=== PATIENT | male | born 1955 | race Caucasian/White ===

== ENCOUNTER 2018-01-26 16:36 | Inpatient (IN) | payer MEDICAID, OTHER ==
[~2018-01-26] VITALS: Ht 182.9 cm; Wt 78.6 kg
[~2018-01-26 16:36] MED LIST: ASPI81TA52 PO; CARV-50 PO; FURO-149 PO; LISI-604 PO; PANT-47 PO; SPIR25TA3 PO
[2018-01-26] MEDS ORDERED: normal saline 1000ML IV soln IV ONE (17:05)
[2018-01-26] MEDS ORDERED: ondansetron/PF 4mg/2ml inj IV ONE (17:05)
[2018-01-26] MEDS ORDERED: pantoprazole IV 80 MG in normal saline 100ml IV soln 100 ML IV ONE (17:05)
[2018-01-26 17:38] LABS: BASOPHILS % (AUTO) 1.3 % (0-1); EOSINOPHILS # (AUTO) 0.1 X10'3 (0-0.9); EOSINOPHILS % (AUTO) 3.7 % (0-6); HEMOGLOBIN 10.6 g/dl (14.0-17.9); LYMPHOCYTES # (AUTO) 0.8 X10'3 (1.1-4.8); LYMPHOCYTES % (AUTO) 21.4 % (21-51); MEAN CORPUSCULAR HEMOGLOBIN 37.9 PG (27.0-31.0); MEAN CORPUSCULAR VOLUME 111.4 FL (78-98); MEAN PLATELET VOLUME 9.1 FL (7.4-10.4); MONOCYTES # (AUTO) 0.3 X10'3 (0-0.9); MONOCYTES % (AUTO) 7.6 % (2-12); NEUTROPHILS # (AUTO) 2.5 X10'3 (1.8-7.7); PLATELET COUNT 92 X10'3 (140-440); RED BLOOD COUNT 2.79 X10'6 (4.70-6.10); RED CELL DISTRIBUTION WIDTH 21.6 % (11.5-14.5); WHITE BLOOD COUNT 3.7 X10'3 (4.5-11.0)
[2018-01-26 17:45] LABS: INR 1.1 INR; PARTIAL THROMBOPLASTIN TIME 25 SECONDS (22-32); PROTHROMBIN TIME 11.5 SECONDS (9.0-12.0)
[2018-01-26 17:54] LABS: ANISOCYTOSIS 3+; LARGE PLATELETS FEW; PLATELET ESTIMATE DECREASED; POLYCHROMASIA 2+
[2018-01-26 17:59] LABS: ALANINE AMINOTRANSFERASE 58 U/L (12-78); ALBUMIN 3.9 G/DL (3.4-5.0); ALBUMIN/GLOBULIN RATIO 1.2 (1.1-1.5); ALKALINE PHOSPHATASE 179 IU/L (46-116); ANION GAP 9 (8-16); ASPARTATE AMINO TRANSFERASE 80 U/L (10-37); BILIRUBIN,TOTAL 1.6 MG/DL (0.1-1.0); BLOOD UREA NITROGEN 8 MG/DL (7-18); BUN/CREATININE RATIO 5.8 (5.4-32.0); CALCIUM 8.4 MG/DL (8.5-10.1); CHLORIDE 98 MMOL/L (99-107); CREATININE 1.38 MG/DL (0.60-1.10); GLUCOSE 92 MG/DL (70-104); POTASSIUM 4.5 MMOL/L (3.5-5.1); SODIUM 133 MMOL/L (135-145); TOTAL CARBON DIOXIDE 26.2 MMOL/L (24-32); TOTAL PROTEIN 7.2 G/DL (6.4-8.2); eGFR 52 ML/MIN
[2018-01-26] MEDS: octreotide inj. 1,250 MCG in normal saline 250ml IV soln 250 ML IV SCH (18:21)
[2018-01-26 18:59] LABS: CLARITY,URINE CLEAR (Clear); COLOR,URINE AMBER (Yellow); GLUCOSE, URINE NEGATIVE (Neg); KETONES,URINE NEGATIVE (Neg); LEUKOCYTE ESTERASE ,URINE NEGATIVE (Neg); NITRITES, URINE NEGATIVE (Neg); OCCULT BLOOD,URINE NEGATIVE (Neg); PROTEIN,URINE NEGATIVE (Neg); UROBILINOGEN,URINE 0.2 E.U/dL (0.2-1.0)
[2018-01-26 19:00] LABS: UA COLLECTION TYPE CLN CATCH MIDSTREAM
[2018-01-26] MEDS ORDERED: morphine 4 MG/ML inj SYRINge IV ONE (19:45)
[2018-01-26] MEDS: pantoprazole IV 80 MG in dextrose 5%-water 100 ML IV SCH (20:27)
[2018-01-26] MEDS ORDERED: thiamine 100mg/ml 2ml inj. IV ONE (20:40)
[2018-01-26] MEDS ORDERED: potassium Cl 40MEQ/NS 500ml 500 ML IV PRN ×2 (20:40)
[2018-01-26] MEDS ORDERED: acetaminophen 325mg tablet PO PRN (20:40)
[2018-01-26] MEDS ORDERED: potassium Cl 20 mEq SR tablet PO PRN ×2 (20:40)
[2018-01-26] MEDS ORDERED: ipratropium/albuterol 3ml nebule NEB PRN (20:40)
[2018-01-26] MEDS ORDERED: magnesium 4gm in 100ml NS 100 ML IV PRN (20:40)
[2018-01-26] MEDS ORDERED: magnesium Cl slow-release 64mg tablet PO PRN (20:40)
[2018-01-26] MEDS ORDERED: magnesium hydroxide 30ml (MOM) UD suspension PO PRN (20:40)
[2018-01-26] MEDS ORDERED: mag hydrox/Alum hydrox/simeth 30ml oral suspension PO PRN (20:40)
[2018-01-26] MEDS ORDERED: magnesium 2GM in 50ml NS 50 ML IV PRN (20:40)
[2018-01-26] MEDS ORDERED: haloperidol 5mg tablet PO PRN (20:40)
[2018-01-26] MEDS ORDERED: albuterol 2.5 MG/3 ML nebule NEB PRN (20:40)
[2018-01-26] MEDS ORDERED: dextrose 50%-water 50ml dispensing syringe IV PRN (20:40)
[2018-01-26] MEDS ORDERED: haloperidol lactate 5mg/ml inj IM PRN (20:40)
[2018-01-26 22:00] VITALS: BP 127/78
[2018-01-26] MEDS: normal saline 1000ml 1,000 ML IV SCH (22:49)
[2018-01-27] VITALS (11 sets, daily range): BP systolic 101–144; BP diastolic 53–100
[2018-01-27] MEDS ORDERED: MORPHINE 2MG in 2ml NS syringe IV PRN (00:35)
[2018-01-27] MEDS: morphine 4 MG/ML inj SYRINge IV PRN ×5 (00:57→22:38)
[2018-01-27] MEDS: ondansetron/PF 4mg/2ml inj IV PRN ×2 (04:40→22:37)
[2018-01-27] MEDS: pantoprazole IV 80 MG in dextrose 5%-water 100 ML IV SCH (04:57)
[2018-01-27 06:14] LABS: ALANINE AMINOTRANSFERASE 44 U/L (12-78); ALBUMIN 3.1 G/DL (3.4-5.0); ALBUMIN/GLOBULIN RATIO 1.1 (1.1-1.5); ALKALINE PHOSPHATASE 148 IU/L (46-116); ANION GAP 14 (8-16); ASPARTATE AMINO TRANSFERASE 57 U/L (10-37); BILIRUBIN,TOTAL 1.7 MG/DL (0.1-1.0); BLOOD UREA NITROGEN 8 MG/DL (7-18); BUN/CREATININE RATIO 5.4 (5.4-32.0); CALCIUM 7.6 MG/DL (8.5-10.1); CHLORIDE 104 MMOL/L (99-107); CREATININE 1.47 MG/DL (0.60-1.10); GLUCOSE 94 MG/DL (70-104); MAGNESIUM 1.7 MG/DL (1.5-2.4); POTASSIUM 4.6 MMOL/L (3.5-5.1); SODIUM 136 MMOL/L (135-145); TOTAL CARBON DIOXIDE 18.4 MMOL/L (24-32); eGFR 49 ML/MIN
[2018-01-27 06:19] LABS: BASOPHILS % (AUTO) 0.8 % (0-1); EOSINOPHILS # (AUTO) 0.1 X10'3 (0-0.9); EOSINOPHILS % (AUTO) 3.6 % (0-6); HEMATOCRIT 26.8 % (42.0-52.0); HEMOGLOBIN 9.2 g/dl (14.0-17.9); LYMPHOCYTES # (AUTO) 1.1 X10'3 (1.1-4.8); MEAN CORPUSCULAR HEMOGLOBIN 38.2 PG (27.0-31.0); MEAN CORPUSCULAR HGB CONC 34.3 % (33.0-36.5); MEAN CORPUSCULAR VOLUME 111.4 FL (78-98); MEAN PLATELET VOLUME 9.6 FL (7.4-10.4); MONOCYTES # (AUTO) 0.3 X10'3 (0-0.9); MONOCYTES % (AUTO) 9.7 % (2-12); NEUTROPHILS # (AUTO) 1.4 X10'3 (1.8-7.7); NEUTROPHILS % (AUTO) 47.9 % (42-75); PLATELET COUNT 72 X10'3 (140-440); RED CELL DISTRIBUTION WIDTH 21.8 % (11.5-14.5); WHITE BLOOD COUNT 2.9 X10'3 (4.5-11.0)
[2018-01-27 07:00] LABS: OCCULT BLOOD STOOL POSITIVE (Neg)
[2018-01-27 07:47] LABS: ANISOCYTOSIS 3+; LARGE PLATELETS FEW; PLATELET ESTIMATE DECREASED; TOTAL CELLS COUNTED 100
[2018-01-27 07:48] LABS: POIKILOCYTOSIS FEW; POLYCHROMASIA 1+
[2018-01-27] MEDS: carVEDilol 12.5mg tablet PO SCH ×2 (08:00→20:00)
[2018-01-27] MEDS: furosemide 40mg tablet PO SCH (08:00)
[2018-01-27] MEDS: lisinopril 5mg tablet PO SCH (08:00)
[2018-01-27] MEDS: K and/or MAG REPLACEMENT MC SCH (08:00)
[2018-01-27] MEDS: normal saline 1000ml 1,000 ML IV SCH ×2 (08:37→16:39)
[2018-01-27] MEDS ORDERED: fentaNYL/PF 50MCG/1 ML 2ML syringe ONE (08:41)
[2018-01-27] MEDS ORDERED: LIDOcaine Viscous 15ml cup ONE (08:42)
[2018-01-27] MEDS ORDERED: MIDAZolam 5mg/5ml vial ONE (08:42)
[2018-01-27] MEDS: pantoprazole IV 80 MG in normal saline 100ml IV soln 100 ML IV SCH ×2 (14:00→21:10)
[2018-01-27] MEDS: octreotide inj. 1,250 MCG in normal saline 250ml IV soln 250 ML IV SCH (18:03)
[2018-01-28] MEDS: normal saline 1000ml 1,000 ML IV SCH (01:19)
[2018-01-28 03:00] VITALS: BP 136/100
[2018-01-28] MEDS: ondansetron/PF 4mg/2ml inj IV PRN (04:05)
[2018-01-28] MEDS: morphine 4 MG/ML inj SYRINge IV PRN ×2 (04:05→14:22)
[2018-01-28] MEDS: pantoprazole IV 80 MG in normal saline 100ml IV soln 100 ML IV SCH ×2 (04:42→21:53)
[2018-01-28 05:44] LABS: BASOPHILS # (AUTO) 0.1 X10'3 (0-0.2); BASOPHILS % (AUTO) 1.5 % (0-1); EOSINOPHILS # (AUTO) 0.1 X10'3 (0-0.9); HEMATOCRIT 28.3 % (42.0-52.0); HEMOGLOBIN 9.6 g/dl (14.0-17.9); LYMPHOCYTES # (AUTO) 0.9 X10'3 (1.1-4.8); LYMPHOCYTES % (AUTO) 22.4 % (21-51); MEAN CORPUSCULAR HEMOGLOBIN 38.6 PG (27.0-31.0); MEAN CORPUSCULAR VOLUME 113.6 FL (78-98); MEAN PLATELET VOLUME 9.9 FL (7.4-10.4); MONOCYTES # (AUTO) 0.5 X10'3 (0-0.9); MONOCYTES % (AUTO) 14.1 % (2-12); NEUTROPHILS # (AUTO) 2.3 X10'3 (1.8-7.7); PLATELET COUNT 82 X10'3 (140-440); RED BLOOD COUNT 2.49 X10'6 (4.70-6.10); RED CELL DISTRIBUTION WIDTH 21.6 % (11.5-14.5); WHITE BLOOD COUNT 3.9 X10'3 (4.5-11.0)
[2018-01-28 06:06] LABS: ALANINE AMINOTRANSFERASE 41 U/L (12-78); ALBUMIN 3.4 G/DL (3.4-5.0); ALBUMIN/GLOBULIN RATIO 1.2 (1.1-1.5); ALKALINE PHOSPHATASE 142 IU/L (46-116); ANION GAP 14 (8-16); ASPARTATE AMINO TRANSFERASE 44 U/L (10-37); BILIRUBIN,TOTAL 1.9 MG/DL (0.1-1.0); BLOOD UREA NITROGEN 14 MG/DL (7-18); BUN/CREATININE RATIO 8.6 (5.4-32.0); CALCIUM 7.8 MG/DL (8.5-10.1); CHLORIDE 104 MMOL/L (99-107); CREATININE 1.63 MG/DL (0.60-1.10); GLUCOSE 90 MG/DL (70-104); MAGNESIUM 1.7 MG/DL (1.5-2.4); POTASSIUM 5.1 MMOL/L (3.5-5.1); SODIUM 136 MMOL/L (135-145); TOTAL PROTEIN 6.2 G/DL (6.4-8.2); eGFR 43 ML/MIN
[2018-01-28 06:35] VITALS: BP 129/98
[2018-01-28] MEDS: LORazepam 2 mg/ml vial IV PRN ×5 (08:00→22:32)
[2018-01-28] MEDS: K and/or MAG REPLACEMENT MC SCH (08:00)
[2018-01-28] MEDS: furosemide 40mg tablet PO SCH (08:04)
[2018-01-28] MEDS: lisinopril 5mg tablet PO SCH (08:04)
[2018-01-28] MEDS: carVEDilol 12.5mg tablet PO SCH ×2 (08:04→20:00)
[2018-01-28] MEDS: sodium chloride 0.45% 1,000 ML IV SCH ×2 (10:00→23:36)
[2018-01-28] MEDS: thiamine inj. 100 MG, MVI, adult No.4 with vit. K 10 ML in dextrose 5% water 500ml 489 ML IV SCH ×3 (10:18)
[2018-01-28 11:00] VITALS: BP 147/95
[2018-01-28 15:00] VITALS: BP 191/147
[2018-01-28] MEDS ORDERED: atenolol 50mg tablet PO SCH (15:30)
[2018-01-28] MEDS ORDERED: haloperidol 5mg tablet PO PRN ×2 (15:30)
[2018-01-28] MEDS ORDERED: haloperidol lactate 5mg/ml inj IM PRN ×2 (15:30)
[2018-01-28] MEDS ORDERED: thiamine 100mg/ml 2ml inj. IV ONE ×2 (15:30)
[2018-01-28] MEDS ORDERED: LORazepam 1 MG tablet PO PRN ×2 (15:30→20:40)
[2018-01-28] MEDS ORDERED: LORazepam 2 mg/ml vial IV PRN ×2 (15:30→20:40)
[2018-01-28] MEDS ORDERED: cloNIDine 0.1 mg tablet PO PRN (15:30)
[2018-01-28] MEDS ORDERED: dextrose 50%-water 50ml dispensing syringe IV PRN ×2 (15:30)
[2018-01-28] MEDS ORDERED: thiamine inj. 100 MG in normal saline 100ml IV soln 99 ML IV ONE (16:35)
[2018-01-28 17:53] VITALS: BP 126/76
[2018-01-28] MEDS: octreotide inj. 1,250 MCG in normal saline 250ml IV soln 250 ML IV SCH (19:14)
[2018-01-28] MEDS ORDERED: haloperidol lactate 5mg/ml inj IM ONE (19:40)
[2018-01-29] MEDS: sodium chloride 0.45% 1,000 ML IV SCH ×3 (02:00→19:14)
[2018-01-29] MEDS: LORazepam 2 mg/ml vial IV PRN ×3 (03:33→07:57)
[2018-01-29 06:06] LABS: ALANINE AMINOTRANSFERASE 39 U/L (12-78); ALBUMIN 3.5 G/DL (3.4-5.0); ALBUMIN/GLOBULIN RATIO 1.1 (1.1-1.5); ALKALINE PHOSPHATASE 146 IU/L (46-116); ANION GAP 13 (8-16); ASPARTATE AMINO TRANSFERASE 53 U/L (10-37); BILIRUBIN,TOTAL 1.8 MG/DL (0.1-1.0); BLOOD UREA NITROGEN 15 MG/DL (7-18); BUN/CREATININE RATIO 8.7 (5.4-32.0); CALCIUM 8.2 MG/DL (8.5-10.1); CHLORIDE 103 MMOL/L (99-107); CREATININE 1.73 MG/DL (0.60-1.10); GLUCOSE 98 MG/DL (70-104); MAGNESIUM 1.7 MG/DL (1.5-2.4); POTASSIUM 4.4 MMOL/L (3.5-5.1); SODIUM 137 MMOL/L (135-145); TOTAL CARBON DIOXIDE 21.2 MMOL/L (24-32); TOTAL PROTEIN 6.6 G/DL (6.4-8.2); eGFR 40 ML/MIN
[2018-01-29 06:35] VITALS: BP 113/93
[2018-01-29] MEDS: pantoprazole IV 80 MG in normal saline 100ml IV soln 100 ML IV SCH (06:43)
[2018-01-29] MEDS: carVEDilol 12.5mg tablet PO SCH ×2 (07:46→19:22)
[2018-01-29] MEDS: lisinopril 5mg tablet PO SCH (07:46)
[2018-01-29] MEDS: furosemide 40mg tablet PO SCH (07:47)
[2018-01-29] MEDS: K and/or MAG REPLACEMENT MC SCH (08:00)
[2018-01-29] MEDS: thiamine inj. 100 MG, MVI, adult No.4 with vit. K 10 ML in dextrose 5% water 500ml 489 ML IV SCH ×3 (08:00)
[2018-01-29 08:50] LABS: BASOPHILS % (AUTO) 1.3 % (0-1); EOSINOPHILS # (AUTO) 0.1 X10'3 (0-0.9); EOSINOPHILS % (AUTO) 3.6 % (0-6); HEMOGLOBIN 9.8 g/dl (14.0-17.9); MEAN CORPUSCULAR HEMOGLOBIN 38.4 PG (27.0-31.0); MEAN CORPUSCULAR HGB CONC 33.8 % (33.0-36.5); MEAN CORPUSCULAR VOLUME 113.5 FL (78-98); MEAN PLATELET VOLUME 10.4 FL (7.4-10.4); MONOCYTES # (AUTO) 0.5 X10'3 (0-0.9); MONOCYTES % (AUTO) 14.5 % (2-12); NEUTROPHILS % (AUTO) 52.6 % (42-75); PLATELET COUNT 88 X10'3 (140-440); RED BLOOD COUNT 2.56 X10'6 (4.70-6.10); RED CELL DISTRIBUTION WIDTH 19.9 % (11.5-14.5); WHITE BLOOD COUNT 3.6 X10'3 (4.5-11.0)
[2018-01-29 11:00] VITALS: BP 133/91
[2018-01-29] MEDS: CefTRIAXone/D5W-Rocephin 1gm 50 ML IV SCH (12:52)
[2018-01-29] MEDS: multivitamins, therapeutics tablet PO SCH (14:02)
[2018-01-29] MEDS: thiamine 100mg tablet PO SCH (14:02)
[2018-01-29] MEDS ORDERED: LORazepam 2 mg/ml vial IV PRN (14:40)
[2018-01-29 15:00] VITALS: BP 131/87
[2018-01-29 19:00] VITALS: BP 139/85
[2018-01-29] MEDS: morphine 4 MG/ML inj SYRINge IV PRN ×2 (19:06→23:00)
[2018-01-29 23:00] VITALS: BP 157/97
[2018-01-30] MEDS: sodium chloride 0.45% 1,000 ML IV SCH ×3 (02:00→18:00)
[2018-01-30 03:00] VITALS: BP 157/97
[2018-01-30 06:00] VITALS: BP 129/78
[2018-01-30 06:10] LABS: BASOPHILS % (AUTO) 0.7 % (0-1); EOSINOPHILS # (AUTO) 0.1 X10'3 (0-0.9); EOSINOPHILS % (AUTO) 3.8 % (0-6); HEMATOCRIT 25.7 % (42.0-52.0); HEMOGLOBIN 8.9 g/dl (14.0-17.9); LYMPHOCYTES # (AUTO) 0.8 X10'3 (1.1-4.8); LYMPHOCYTES % (AUTO) 34.5 % (21-51); MEAN CORPUSCULAR HEMOGLOBIN 38.8 PG (27.0-31.0); MEAN CORPUSCULAR HGB CONC 34.6 % (33.0-36.5); MEAN CORPUSCULAR VOLUME 112.3 FL (78-98); MEAN PLATELET VOLUME 8.8 FL (7.4-10.4); MONOCYTES # (AUTO) 0.3 X10'3 (0-0.9); MONOCYTES % (AUTO) 12.4 % (2-12); NEUTROPHILS # (AUTO) 1.2 X10'3 (1.8-7.7); NEUTROPHILS % (AUTO) 48.6 % (42-75); PLATELET COUNT 81 X10'3 (140-440); RED BLOOD COUNT 2.29 X10'6 (4.70-6.10); WHITE BLOOD COUNT 2.4 X10'3 (4.5-11.0)
[2018-01-30 06:34] LABS: ALANINE AMINOTRANSFERASE 34 U/L (12-78); ALKALINE PHOSPHATASE 131 IU/L (46-116); ANION GAP 12 (8-16); ASPARTATE AMINO TRANSFERASE 52 U/L (10-37); BILIRUBIN,TOTAL 1.5 MG/DL (0.1-1.0); BLOOD UREA NITROGEN 11 MG/DL (7-18); BUN/CREATININE RATIO 7.2 (5.4-32.0); CALCIUM 7.7 MG/DL (8.5-10.1); CHLORIDE 102 MMOL/L (99-107); CREATININE 1.52 MG/DL (0.60-1.10); GLUCOSE 86 MG/DL (70-104); MAGNESIUM 1.4 MG/DL (1.5-2.4); POTASSIUM 3.8 MMOL/L (3.5-5.1); SODIUM 137 MMOL/L (135-145); TOTAL CARBON DIOXIDE 22.7 MMOL/L (24-32); TOTAL PROTEIN 5.9 G/DL (6.4-8.2); eGFR 47 ML/MIN
[2018-01-30] MEDS: lisinopril 5mg tablet PO SCH (07:58)
[2018-01-30] MEDS: thiamine 100mg tablet PO SCH (07:58)
[2018-01-30] MEDS: furosemide 40mg tablet PO SCH (07:58)
[2018-01-30] MEDS: multivitamins, therapeutics tablet PO SCH (07:58)
[2018-01-30] MEDS: carVEDilol 12.5mg tablet PO SCH ×2 (07:58→20:17)
[2018-01-30] MEDS: CefTRIAXone/D5W-Rocephin 1gm 50 ML IV SCH (07:59)
[2018-01-30] MEDS: pantoprazole 40mg Tablet.DR PO SCH (07:59)
[2018-01-30] MEDS: K and/or MAG REPLACEMENT MC SCH (08:00)
[2018-01-30] MEDS ORDERED: potassium Cl 20 mEq SR tablet PO PRN (09:25)
[2018-01-30 09:46] LABS: ANISOCYTOSIS 3+; PLATELET ESTIMATE DECREASED
[2018-01-30 09:47] LABS: POLYCHROMASIA FEW
[2018-01-30 11:00] VITALS: BP 146/88
[2018-01-30] MEDS: lactulose 20gm/30ml cup PO SCH ×2 (13:37→20:17)
[2018-01-30] MEDS: magnesium Cl slow-release 64mg tablet PO PRN ×2 (13:37→20:17)
[2018-01-30 15:00] VITALS: BP 169/97
[2018-01-30] MEDS ORDERED: LORazepam 1 MG tablet PO PRN ×2 (15:30→20:40)
[2018-01-30] MEDS ORDERED: LORazepam 2 mg/ml vial IV PRN ×2 (15:30→20:40)
[2018-01-30 19:00] VITALS: BP 143/85
[2018-01-30] MEDS: morphine 4 MG/ML inj SYRINge IV PRN ×2 (20:16→23:58)
[2018-01-30 23:00] VITALS: BP 143/90
[2018-01-31 03:00] VITALS: BP 136/85
[2018-01-31] MEDS: sodium chloride 0.45% 1,000 ML IV SCH (03:08)
[2018-01-31] MEDS: lactulose 20gm/30ml cup PO SCH ×5 (03:08→20:04)
[2018-01-31 05:50] LABS: BASOPHILS # (AUTO) 0.1 X10'3 (0-0.2); BASOPHILS % (AUTO) 1.8 % (0-1); EOSINOPHILS # (AUTO) 0.1 X10'3 (0-0.9); EOSINOPHILS % (AUTO) 3.3 % (0-6); HEMATOCRIT 27.3 % (42.0-52.0); HEMOGLOBIN 9.3 g/dl (14.0-17.9); LYMPHOCYTES % (AUTO) 30.9 % (21-51); MEAN CORPUSCULAR HEMOGLOBIN 38.2 PG (27.0-31.0); MEAN CORPUSCULAR HGB CONC 34.2 % (33.0-36.5); MEAN CORPUSCULAR VOLUME 111.9 FL (78-98); MEAN PLATELET VOLUME 8.8 FL (7.4-10.4); MONOCYTES # (AUTO) 0.4 X10'3 (0-0.9); MONOCYTES % (AUTO) 13.5 % (2-12); NEUTROPHILS # (AUTO) 1.6 X10'3 (1.8-7.7); NEUTROPHILS % (AUTO) 50.5 % (42-75); PLATELET COUNT 93 X10'3 (140-440); RED BLOOD COUNT 2.44 X10'6 (4.70-6.10); RED CELL DISTRIBUTION WIDTH 19.4 % (11.5-14.5); WHITE BLOOD COUNT 3.2 X10'3 (4.5-11.0)
[2018-01-31 06:00] VITALS: BP 136/81
[2018-01-31 06:04] LABS: ALANINE AMINOTRANSFERASE 33 U/L (12-78); ALBUMIN 3.1 G/DL (3.4-5.0); ALBUMIN/GLOBULIN RATIO 1.1 (1.1-1.5); ALKALINE PHOSPHATASE 127 IU/L (46-116); ANION GAP 10 (8-16); ASPARTATE AMINO TRANSFERASE 48 U/L (10-37); BILIRUBIN,TOTAL 1.2 MG/DL (0.1-1.0); BLOOD UREA NITROGEN 9 MG/DL (7-18); CALCIUM 7.9 MG/DL (8.5-10.1); CHLORIDE 104 MMOL/L (99-107); CREATININE 1.49 MG/DL (0.60-1.10); GLUCOSE 102 MG/DL (70-104); MAGNESIUM 1.4 MG/DL (1.5-2.4); POTASSIUM 3.7 MMOL/L (3.5-5.1); SODIUM 139 MMOL/L (135-145); TOTAL CARBON DIOXIDE 24.7 MMOL/L (24-32); eGFR 48 ML/MIN
[2018-01-31 06:22] LABS: ANISOCYTOSIS 2+; PLATELET ESTIMATE DECREASED; POLYCHROMASIA FEW
[2018-01-31] MEDS: lisinopril 5mg tablet PO SCH ×3 (07:24→08:00)
[2018-01-31] MEDS: magnesium Cl slow-release 64mg tablet PO PRN ×3 (07:24→20:05)
[2018-01-31] MEDS: thiamine 100mg tablet PO SCH ×3 (07:24→08:00)
[2018-01-31] MEDS: CefTRIAXone/D5W-Rocephin 1gm 50 ML IV SCH (07:25)
[2018-01-31] MEDS: multivitamins, therapeutics tablet PO SCH ×3 (07:25→08:00)
[2018-01-31] MEDS: carVEDilol 12.5mg tablet PO SCH ×3 (07:25→20:04)
[2018-01-31] MEDS: furosemide 40mg tablet PO SCH ×3 (07:25→08:00)
[2018-01-31] MEDS: pantoprazole 40mg Tablet.DR PO SCH ×3 (07:25→20:05)
[2018-01-31] MEDS: K and/or MAG REPLACEMENT MC SCH (08:00)
[2018-01-31] MEDS: folic acid 1mg tablet PO SCH (11:38)
[2018-01-31] MEDS: SODIUM CHLORIDE 0.45% IV SCH (11:38)
[2018-01-31] MEDS: POTASSIUM CL IV SCH (11:38)
[2018-01-31 15:00] VITALS: BP 164/102
[2018-01-31] MEDS ORDERED: multivitamins, therapeutics tablet PO ONE (15:35)
[2018-01-31] MEDS ORDERED: furosemide 40mg tablet PO ONE (15:35)
[2018-01-31] MEDS ORDERED: lisinopril 5mg tablet PO ONE (15:40)
[2018-01-31] MEDS ORDERED: thiamine 100mg tablet PO ONE (15:40)
[2018-01-31] MEDS: LORazepam 2 mg/ml vial IV PRN ×2 (15:41→21:41)
[2018-01-31] MEDS: nicotine 21mg patch - 24 hr TD SCH (15:41)
[2018-01-31] MEDS: LACTOSE-FREE FOOD 237ML (BOOST) PO SCH (18:00)
[2018-01-31 18:30] VITALS: BP 137/81
[2018-01-31 22:00] VITALS: BP 145/91
[2018-02-01] MEDS: POTASSIUM CL IV SCH ×2 (00:29→13:13)
[2018-02-01] MEDS: SODIUM CHLORIDE 0.45% IV SCH ×2 (00:29→13:13)
[2018-02-01 02:00] VITALS: BP 132/105
[2018-02-01] MEDS: lactulose 20gm/30ml cup PO SCH ×4 (02:00→19:48)
[2018-02-01 05:30] VITALS: BP 145/73
[2018-02-01 05:36] LABS: BASOPHILS % (AUTO) 1.6 % (0-1); EOSINOPHILS # (AUTO) 0.1 X10'3 (0-0.9); EOSINOPHILS % (AUTO) 3.3 % (0-6); HEMATOCRIT 24.6 % (42.0-52.0); HEMOGLOBIN 8.5 g/dl (14.0-17.9); LYMPHOCYTES # (AUTO) 0.9 X10'3 (1.1-4.8); MEAN CORPUSCULAR HEMOGLOBIN 38.5 PG (27.0-31.0); MEAN CORPUSCULAR HGB CONC 34.6 % (33.0-36.5); MEAN CORPUSCULAR VOLUME 111.2 FL (78-98); MEAN PLATELET VOLUME 8.4 FL (7.4-10.4); MONOCYTES # (AUTO) 0.4 X10'3 (0-0.9); NEUTROPHILS # (AUTO) 1.3 X10'3 (1.8-7.7); NEUTROPHILS % (AUTO) 47.1 % (42-75); PLATELET COUNT 90 X10'3 (140-440); RED BLOOD COUNT 2.22 X10'6 (4.70-6.10); RED CELL DISTRIBUTION WIDTH 20.8 % (11.5-14.5); WHITE BLOOD COUNT 2.7 X10'3 (4.5-11.0)
[2018-02-01 06:00] LABS: ANION GAP 12 (8-16); BLOOD UREA NITROGEN 6 MG/DL (7-18); CALCIUM 7.9 MG/DL (8.5-10.1); CHLORIDE 106 MMOL/L (99-107); CREATININE 1.21 MG/DL (0.60-1.10); GLUCOSE 87 MG/DL (70-104); MAGNESIUM 1.6 MG/DL (1.5-2.4); POTASSIUM 3.4 MMOL/L (3.5-5.1); SODIUM 141 MMOL/L (135-145); TOTAL CARBON DIOXIDE 22.7 MMOL/L (24-32); eGFR 61 ML/MIN
[2018-02-01] MEDS: LACTOSE-FREE FOOD 237ML (BOOST) PO SCH ×3 (08:00→18:00)
[2018-02-01] MEDS: K and/or MAG REPLACEMENT MC SCH (08:00)
[2018-02-01] MEDS: nicotine 21mg patch - 24 hr TD SCH ×2 (08:00→15:18)
[2018-02-01] MEDS: potassium Cl 20 mEq SR tablet PO PRN ×3 (09:06→19:48)
[2018-02-01] MEDS: furosemide 40mg tablet PO SCH (09:07)
[2018-02-01] MEDS: thiamine 100mg tablet PO SCH (09:07)
[2018-02-01] MEDS: lisinopril 5mg tablet PO SCH (09:07)
[2018-02-01] MEDS: folic acid 1mg tablet PO SCH (09:07)
[2018-02-01] MEDS: carVEDilol 12.5mg tablet PO SCH ×2 (09:07→19:48)
[2018-02-01] MEDS: multivitamins, therapeutics tablet PO SCH (09:07)
[2018-02-01] MEDS: pantoprazole 40mg Tablet.DR PO SCH ×2 (09:08→19:48)
[2018-02-01] MEDS: CefTRIAXone/D5W-Rocephin 1gm 50 ML IV SCH (09:08)
[2018-02-01] MEDS: LORazepam 1 MG tablet PO PRN ×2 (09:34→19:47)
[2018-02-01 11:00] VITALS: BP 150/96
[2018-02-01 12:22] LABS: PLATELET ESTIMATE DECREASED; TOTAL CELLS COUNTED 100
[2018-02-01 12:23] LABS: ANISOCYTOSIS 3+; HYPOCHROMASIA 1+; POLYCHROMASIA FEW; SCHISTOCYTES FEW
[2018-02-01 12:24] LABS: STOMATOCYTES 1+
[2018-02-01 15:00] VITALS: BP 151/100
[2018-02-01] MEDS: clindamycin 600mg/D5W 50ml 50 ML IV SCH ×2 (15:25→19:48)
[2018-02-01] MEDS: levoFLOXACIN-Levaquin 500mg/D5 100 ML IV SCH (15:25)
[2018-02-01] MEDS ORDERED: LORazepam 1 MG tablet PO PRN (15:30)
[2018-02-01] MEDS ORDERED: LORazepam 2 mg/ml vial IV PRN (15:30)
[2018-02-01 18:00] VITALS: BP 146/101
[2018-02-01 22:00] VITALS: BP 143/100
[2018-02-02 02:00] VITALS: BP_SYST 134; BP_SYST 181; BP_DIAS 55; BP_DIAS 86
[2018-02-02] MEDS: POTASSIUM CL IV SCH ×2 (02:15→15:41)
[2018-02-02] MEDS: clindamycin 600mg/D5W 50ml 50 ML IV SCH ×4 (02:15→20:03)
[2018-02-02] MEDS: lactulose 20gm/30ml cup PO SCH ×4 (02:15→20:03)
[2018-02-02] MEDS: SODIUM CHLORIDE 0.45% IV SCH ×2 (02:15→15:41)
[2018-02-02 06:00] VITALS: BP 128/104
[2018-02-02 06:42] LABS: BASOPHILS % (AUTO) 1.3 % (0-1); EOSINOPHILS # (AUTO) 0.1 X10'3 (0-0.9); EOSINOPHILS % (AUTO) 2.9 % (0-6); HEMATOCRIT 27.4 % (42.0-52.0); HEMOGLOBIN 9.5 g/dl (14.0-17.9); LYMPHOCYTES # (AUTO) 0.9 X10'3 (1.1-4.8); LYMPHOCYTES % (AUTO) 29.6 % (21-51); MEAN CORPUSCULAR HEMOGLOBIN 38.1 PG (27.0-31.0); MEAN CORPUSCULAR HGB CONC 34.5 % (33.0-36.5); MEAN CORPUSCULAR VOLUME 110.4 FL (78-98); MEAN PLATELET VOLUME 8.8 FL (7.4-10.4); MONOCYTES # (AUTO) 0.4 X10'3 (0-0.9); MONOCYTES % (AUTO) 14.5 % (2-12); NEUTROPHILS # (AUTO) 1.6 X10'3 (1.8-7.7); NEUTROPHILS % (AUTO) 51.7 % (42-75); PLATELET COUNT 89 X10'3 (140-440); RED BLOOD COUNT 2.48 X10'6 (4.70-6.10); RED CELL DISTRIBUTION WIDTH 20.9 % (11.5-14.5); WHITE BLOOD COUNT 3.1 X10'3 (4.5-11.0)
[2018-02-02 06:56] LABS: ALBUMIN 3.1 G/DL (3.4-5.0); ANION GAP 13 (8-16); BLOOD UREA NITROGEN 6 MG/DL (7-18); BUN/CREATININE RATIO 4.4 (5.4-32.0); CALCIUM 8.5 MG/DL (8.5-10.1); CHLORIDE 107 MMOL/L (99-107); CREATININE 1.36 MG/DL (0.60-1.10); GLUCOSE 90 MG/DL (70-104); MAGNESIUM 1.6 MG/DL (1.5-2.4); POTASSIUM 3.9 MMOL/L (3.5-5.1); SODIUM 142 MMOL/L (135-145); TOTAL CARBON DIOXIDE 22.2 MMOL/L (24-32); eGFR 53 ML/MIN
[2018-02-02] MEDS: K and/or MAG REPLACEMENT MC SCH (08:00)
[2018-02-02] MEDS: LACTOSE-FREE FOOD 237ML (BOOST) PO SCH ×3 (08:00→18:00)
[2018-02-02 08:27] LABS: ANISOCYTOSIS 2+; PLATELET ESTIMATE DECREASED
[2018-02-02 08:28] LABS: TARGET CELLS FEW
[2018-02-02] MEDS: LORazepam 1 MG tablet PO PRN ×2 (08:54→15:40)
[2018-02-02] MEDS: pantoprazole 40mg Tablet.DR PO SCH ×2 (08:55→20:03)
[2018-02-02] MEDS: folic acid 1mg tablet PO SCH (08:55)
[2018-02-02] MEDS: thiamine 100mg tablet PO SCH (08:55)
[2018-02-02] MEDS: carVEDilol 12.5mg tablet PO SCH ×2 (08:55→20:03)
[2018-02-02] MEDS: lisinopril 5mg tablet PO SCH (08:55)
[2018-02-02] MEDS: multivitamins, therapeutics tablet PO SCH (08:55)
[2018-02-02] MEDS: furosemide 40mg tablet PO SCH (08:55)
[2018-02-02] MEDS: nicotine 21mg patch - 24 hr TD SCH (08:57)
[2018-02-02] MEDS: levoFLOXACIN-Levaquin 500mg/D5 100 ML IV SCH (08:57)
[2018-02-02 11:00] VITALS: BP 113/89
[2018-02-02 15:00] VITALS: BP 130/67
[2018-02-02 18:00] VITALS: BP 143/87
[2018-02-02 22:00] VITALS: BP 140/90
[2018-02-03 02:00] VITALS: BP 127/87
[2018-02-03] MEDS: lactulose 20gm/30ml cup PO SCH ×4 (02:00→20:00)
[2018-02-03] MEDS: clindamycin 600mg/D5W 50ml 50 ML IV SCH ×4 (02:29→19:47)
[2018-02-03] MEDS: SODIUM CHLORIDE 0.45% IV SCH ×2 (03:26→18:20)
[2018-02-03] MEDS: POTASSIUM CL IV SCH ×2 (03:26→18:20)
[2018-02-03 06:00] VITALS: BP 132/102
[2018-02-03] MEDS: furosemide 40mg tablet PO SCH (07:11)
[2018-02-03] MEDS: lisinopril 5mg tablet PO SCH (07:11)
[2018-02-03] MEDS: pantoprazole 40mg Tablet.DR PO SCH ×2 (07:11→19:48)
[2018-02-03] MEDS: folic acid 1mg tablet PO SCH (07:11)
[2018-02-03] MEDS: thiamine 100mg tablet PO SCH (07:11)
[2018-02-03] MEDS: LORazepam 1 MG tablet PO PRN ×3 (07:11→19:00)
[2018-02-03] MEDS: carVEDilol 12.5mg tablet PO SCH ×2 (07:11→19:48)
[2018-02-03] MEDS: multivitamins, therapeutics tablet PO SCH (07:11)
[2018-02-03] MEDS: nicotine 21mg patch - 24 hr TD SCH (07:15)
[2018-02-03] MEDS: LACTOSE-FREE FOOD 237ML (BOOST) PO SCH ×3 (08:00→18:00)
[2018-02-03 10:16] LABS: BASOPHILS % (AUTO) 1.1 % (0-1); EOSINOPHILS # (AUTO) 0.1 X10'3 (0-0.9); EOSINOPHILS % (AUTO) 2.6 % (0-6); HEMATOCRIT 29.6 % (42.0-52.0); HEMOGLOBIN 10.1 g/dl (14.0-17.9); LYMPHOCYTES # (AUTO) 1.1 X10'3 (1.1-4.8); LYMPHOCYTES % (AUTO) 28.9 % (21-51); MEAN CORPUSCULAR HEMOGLOBIN 37.6 PG (27.0-31.0); MEAN CORPUSCULAR HGB CONC 33.9 % (33.0-36.5); MEAN CORPUSCULAR VOLUME 110.8 FL (78-98); MONOCYTES # (AUTO) 0.5 X10'3 (0-0.9); MONOCYTES % (AUTO) 13.5 % (2-12); NEUTROPHILS % (AUTO) 53.9 % (42-75); PLATELET COUNT 98 X10'3 (140-440); RED BLOOD COUNT 2.67 X10'6 (4.70-6.10); RED CELL DISTRIBUTION WIDTH 20.7 % (11.5-14.5); WHITE BLOOD COUNT 3.7 X10'3 (4.5-11.0)
[2018-02-03 10:27] LABS: ALBUMIN 3.3 G/DL (3.4-5.0); ANION GAP 13 (8-16); BLOOD UREA NITROGEN 10 MG/DL (7-18); BUN/CREATININE RATIO 6.5 (5.4-32.0); CALCIUM 8.3 MG/DL (8.5-10.1); CHLORIDE 104 MMOL/L (99-107); CREATININE 1.55 MG/DL (0.60-1.10); GLUCOSE 88 MG/DL (70-104); POTASSIUM 4.2 MMOL/L (3.5-5.1); SODIUM 140 MMOL/L (135-145); TOTAL CARBON DIOXIDE 22.8 MMOL/L (24-32); eGFR 46 ML/MIN
[2018-02-03 10:48] LABS: LARGE PLATELETS FEW; PLATELET ESTIMATE DECREASED
[2018-02-03 10:49] LABS: ANISOCYTOSIS 3+; HYPOCHROMASIA 1+; POLYCHROMASIA 1+; TARGET CELLS 1+
[2018-02-03 11:00] VITALS: BP 154/90
[2018-02-03] MEDS: K and/or MAG REPLACEMENT MC SCH (11:18)
[2018-02-03] MEDS: levoFLOXACIN-Levaquin 500mg/D5 100 ML IV SCH (11:28)
[2018-02-03] MEDS: sucralfate 1 gm tablet PO SCH ×2 (16:08→21:00)
[2018-02-03 18:00] VITALS: BP 155/94
[2018-02-03] MEDS: lactobacillus rhamnosus 10,000 MMU CELLS/CAPSULE PO SCH (19:47)
[2018-02-03 22:00] VITALS: BP 141/89
[2018-02-04] VITALS (7 sets, daily range): BP systolic 117–149; BP diastolic 60–95
[2018-02-04] MEDS: LORazepam 1 MG tablet PO PRN ×3 (00:56→17:08)
[2018-02-04] MEDS: clindamycin 600mg/D5W 50ml 50 ML IV SCH ×4 (01:11→20:23)
[2018-02-04] MEDS: lactulose 20gm/30ml cup PO SCH ×5 (01:12→22:59)
[2018-02-04] MEDS: carVEDilol 12.5mg tablet PO SCH ×2 (06:58→20:23)
[2018-02-04] MEDS: sucralfate 1 gm tablet PO SCH ×4 (06:59→20:23)
[2018-02-04] MEDS: lisinopril 5mg tablet PO SCH (07:00)
[2018-02-04] MEDS: thiamine 100mg tablet PO SCH (07:00)
[2018-02-04] MEDS: multivitamins, therapeutics tablet PO SCH (07:00)
[2018-02-04] MEDS: lactobacillus rhamnosus 10,000 MMU CELLS/CAPSULE PO SCH ×2 (07:01→20:23)
[2018-02-04] MEDS: pantoprazole 40mg Tablet.DR PO SCH ×2 (07:01→20:23)
[2018-02-04] MEDS: folic acid 1mg tablet PO SCH (07:01)
[2018-02-04] MEDS: nicotine 21mg patch - 24 hr TD SCH (07:05)
[2018-02-04 07:06] LABS: BASOPHILS # (AUTO) 0.1 X10'3 (0-0.2); BASOPHILS % (AUTO) 1.8 % (0-1); EOSINOPHILS # (AUTO) 0.1 X10'3 (0-0.9); EOSINOPHILS % (AUTO) 2.7 % (0-6); HEMATOCRIT 28.1 % (42.0-52.0); HEMOGLOBIN 9.6 g/dl (14.0-17.9); LYMPHOCYTES # (AUTO) 1.2 X10'3 (1.1-4.8); MEAN CORPUSCULAR HEMOGLOBIN 37.7 PG (27.0-31.0); MEAN CORPUSCULAR HGB CONC 34.1 % (33.0-36.5); MEAN CORPUSCULAR VOLUME 110.8 FL (78-98); MEAN PLATELET VOLUME 9.7 FL (7.4-10.4); MONOCYTES # (AUTO) 0.4 X10'3 (0-0.9); MONOCYTES % (AUTO) 11.3 % (2-12); NEUTROPHILS % (AUTO) 53.2 % (42-75); PLATELET COUNT 84 X10'3 (140-440); RED BLOOD COUNT 2.53 X10'6 (4.70-6.10); RED CELL DISTRIBUTION WIDTH 20.7 % (11.5-14.5); WHITE BLOOD COUNT 3.8 X10'3 (4.5-11.0)
[2018-02-04] MEDS: SODIUM CHLORIDE 0.45% IV SCH (07:07)
[2018-02-04] MEDS: POTASSIUM CL IV SCH (07:07)
[2018-02-04 07:25] LABS: ALBUMIN 3.2 G/DL (3.4-5.0); ANION GAP 16 (8-16); BLOOD UREA NITROGEN 13 MG/DL (7-18); BUN/CREATININE RATIO 8.7 (5.4-32.0); CALCIUM 8.2 MG/DL (8.5-10.1); CHLORIDE 104 MMOL/L (99-107); GLUCOSE 87 MG/DL (70-104); SODIUM 139 MMOL/L (135-145); TOTAL CARBON DIOXIDE 19.2 MMOL/L (24-32); eGFR 47 ML/MIN
[2018-02-04 07:28] LABS: ANISOCYTOSIS 3+; PLATELET ESTIMATE DECREASED
[2018-02-04 07:29] LABS: POLYCHROMASIA 1+; TARGET CELLS FEW
[2018-02-04] MEDS ORDERED: furosemide 20MG tablet PO SCH (08:00)
[2018-02-04] MEDS: K and/or MAG REPLACEMENT MC SCH (08:00)
[2018-02-04] MEDS: LACTOSE-FREE FOOD 237ML (BOOST) PO SCH ×3 (08:40→18:00)
[2018-02-04] MEDS: levoFLOXACIN-Levaquin 500mg/D5 100 ML IV SCH (08:57)
[2018-02-04] MEDS: LORazepam 0.5 MG tablet PO PRN (21:42)
[2018-02-05] MEDS: clindamycin 600mg/D5W 50ml 50 ML IV SCH ×3 (02:05→14:00)
[2018-02-05 06:00] VITALS: BP 126/74
[2018-02-05 06:47] LABS: ALBUMIN 2.9 G/DL (3.4-5.0); ANION GAP 9 (8-16); BLOOD UREA NITROGEN 11 MG/DL (7-18); BUN/CREATININE RATIO 7.9 (5.4-32.0); CHLORIDE 106 MMOL/L (99-107); CREATININE 1.39 MG/DL (0.60-1.10); GLUCOSE 85 MG/DL (70-104); POTASSIUM 3.8 MMOL/L (3.5-5.1); SODIUM 138 MMOL/L (135-145); TOTAL CARBON DIOXIDE 22.7 MMOL/L (24-32); eGFR 52 ML/MIN
[2018-02-05 07:36] LABS: BASOPHILS % (AUTO) 1.2 % (0-1); EOSINOPHILS # (AUTO) 0.1 X10'3 (0-0.9); EOSINOPHILS % (AUTO) 3.8 % (0-6); HEMATOCRIT 26.1 % (42.0-52.0); HEMOGLOBIN 8.9 g/dl (14.0-17.9); LYMPHOCYTES # (AUTO) 0.9 X10'3 (1.1-4.8); LYMPHOCYTES % (AUTO) 30.7 % (21-51); MEAN CORPUSCULAR HEMOGLOBIN 37.5 PG (27.0-31.0); MEAN CORPUSCULAR VOLUME 110.5 FL (78-98); MEAN PLATELET VOLUME 10.3 FL (7.4-10.4); MONOCYTES # (AUTO) 0.3 X10'3 (0-0.9); MONOCYTES % (AUTO) 11.2 % (2-12); NEUTROPHILS # (AUTO) 1.6 X10'3 (1.8-7.7); NEUTROPHILS % (AUTO) 53.1 % (42-75); PLATELET COUNT 82 X10'3 (140-440); RED BLOOD COUNT 2.36 X10'6 (4.70-6.10); RED CELL DISTRIBUTION WIDTH 20.2 % (11.5-14.5); WHITE BLOOD COUNT 3.1 X10'3 (4.5-11.0)
[2018-02-05] MEDS: K and/or MAG REPLACEMENT MC SCH (08:00)
[2018-02-05] MEDS: lactulose 20gm/30ml cup PO SCH ×2 (08:00→14:00)
[2018-02-05] MEDS: nicotine 21mg patch - 24 hr TD SCH (08:12)
[2018-02-05] MEDS: lisinopril 5mg tablet PO SCH (08:14)
[2018-02-05] MEDS: folic acid 1mg tablet PO SCH (08:14)
[2018-02-05] MEDS: thiamine 100mg tablet PO SCH (08:14)
[2018-02-05] MEDS: pantoprazole 40mg Tablet.DR PO SCH (08:14)
[2018-02-05] MEDS: sucralfate 1 gm tablet PO SCH ×2 (08:14→12:02)
[2018-02-05] MEDS: multivitamins, therapeutics tablet PO SCH (08:14)
[2018-02-05] MEDS: carVEDilol 12.5mg tablet PO SCH (08:14)
[2018-02-05] MEDS: lactobacillus rhamnosus 10,000 MMU CELLS/CAPSULE PO SCH (08:14)
[2018-02-05] MEDS: levoFLOXACIN-Levaquin 500mg/D5 100 ML IV SCH (08:15)
[2018-02-05] MEDS: LACTOSE-FREE FOOD 237ML (BOOST) PO SCH ×2 (08:15→13:00)
[2018-02-05 10:00] VITALS: BP 115/78
[2018-02-05] MEDS ORDERED: pneumococcal 23-VAL P-sac vacc 25 mcg/0.5ml vial IMVAC ONE (11:00)
[2018-02-05] MEDS: LORazepam 0.5 MG tablet PO PRN (12:02)
[2018-02-05] MEDS ORDERED: SUCR1TAB34 PO (13:09)
[2018-02-05] MEDS ORDERED: METR500T4 PO (13:09)
[2018-02-05] MEDS ORDERED: THI100T PO (13:09)
[2018-02-05] MEDS ORDERED: FOLI1TAB16 PO (13:09)
[2018-02-05] MEDS ORDERED: PANT40TA4 PO (13:09)
[2018-02-05] MEDS ORDERED: LEVO750T21 PO (13:09)
== END 2018-02-05 14:30 | disposition home health service (06) | DRG 242 ==
LOC: ER 16:37 → ED HOLD 20:39 → PCU 3S 21:23 → ORTHO 4S 02-04 12:32
PROVIDERS: ADMIT Internal Medicine; ATTEND Internal Medicine
PROC: 0DB68ZX Excision of Stomach, Via Natural or Artificial Opening Endoscopic, Diagnostic (ICD-10-PCS; principal; 2018-01-27)
DX: I85.01 Esophageal varices with bleeding (principal); J69.0 Pneumonitis due to inhalation of food and vomit; N17.9 Acute kidney failure, unspecified; D61.818 Other pancytopenia; F10.231 Alcohol dependence with withdrawal delirium; I50.22 Chronic systolic (congestive) heart failure; K76.6 Portal hypertension; E87.1 Hypo-osmolality and hyponatremia; E86.0 Dehydration; I48.91 Unspecified atrial fibrillation; K26.4 Chronic or unspecified duodenal ulcer with hemorrhage; D62 Acute posthemorrhagic anemia; K70.30 Alcoholic cirrhosis of liver without ascites; E87.6 Hypokalemia; R00.0 Tachycardia, unspecified; Y90.0 Blood alcohol level of less than 20 mg/100 ml; N18.9 Chronic kidney disease, unspecified; K21.9 Gastro-esophageal reflux disease without esophagitis; K29.70 Gastritis, unspecified, without bleeding; K70.40 Alcoholic hepatic failure without coma; K31.89 Other diseases of stomach and duodenum; D69.59 Other secondary thrombocytopenia; F12.90 Cannabis use, unspecified, uncomplicated; R74.0 Nonspecific elevation of levels of transaminase and lactic acid dehydrogenase [LDH]; B19.20 Unspecified viral hepatitis C without hepatic coma; K92.1 Melena; Z86.19 Personal history of other infectious and parasitic diseases; Z95.2 Presence of prosthetic heart valve; Z87.891 Personal history of nicotine dependence; Z28.21 Immunization not carried out because of patient refusal
CPT/HCPCS: 36415; 43239; 71045; 74176; 80048; 80053; 81003; 82140; 82272; 82948; 83735; 85025; 85610; 85730; 86885; 86900; 86901; 87070; 92616; 93005; 93306; 94760; 96365; 96375; 97110; 97116; 97161; 97530; 99285; A4620; A6213; A6250; A6258; C9113; G0500; J0696; J1630; J1956; J2060; J2250; J2270; J2274; J2354; J2405; J3010; J3411; J3480; J3490; J7030; J7060

== ENCOUNTER 2018-04-13 09:21 | Inpatient (IN) | payer MEDICAID, OTHER ==
[~2018-04-13] VITALS: Ht 182.9 cm; Wt 82.0 kg
[~2018-04-13 09:21] MED LIST changes: -ASPI81TA52 PO; +FOLI1TAB16 PO; -FURO-149 PO; -PANT-47 PO; +PANT40TA4 PO; -SPIR25TA3 PO; +SUCR1TAB34 PO; +THI100T PO
[2018-04-13] MEDS ORDERED: morphine 4 MG/ML inj SYRINge IV ONE (10:20)
[2018-04-13] MEDS ORDERED: morphine 4 MG/ML inj SYRINge IV PRN (10:20)
[2018-04-13 10:23] LABS: CLARITY,URINE CLEAR (Clear); COLOR,URINE YELLOW (Yellow); GLUCOSE, URINE NEGATIVE (Neg); KETONES,URINE NEGATIVE (Neg); LEUKOCYTE ESTERASE ,URINE NEGATIVE (Neg); NITRITES, URINE NEGATIVE (Neg); OCCULT BLOOD,URINE NEGATIVE (Neg); PH,URINE 6.5 (4.8-8.0); PROTEIN,URINE NEGATIVE (Neg); UROBILINOGEN,URINE 0.2 E.U/dL (0.2-1.0)
[2018-04-13 10:44] LABS: UA COLLECTION TYPE URINAL
[2018-04-13 10:46] LABS: INR 1.1 INR; PROTHROMBIN TIME 11.7 SECONDS (9.0-12.0)
[2018-04-13 10:52] LABS: ALANINE AMINOTRANSFERASE 14 U/L (12-78); ALBUMIN 3.7 G/DL (3.4-5.0); ALBUMIN/GLOBULIN RATIO 1.2 (1.1-1.5); ALKALINE PHOSPHATASE 114 IU/L (46-116); ANION GAP 12 (8-16); ASPARTATE AMINO TRANSFERASE 20 U/L (10-37); BILIRUBIN,TOTAL 1.4 MG/DL (0.1-1.0); BLOOD UREA NITROGEN 3 MG/DL (7-18); BUN/CREATININE RATIO 2.8 (5.4-32.0); CALCIUM 8.5 MG/DL (8.5-10.1); CHLORIDE 90 MMOL/L (99-107); CREATININE 1.08 MG/DL (0.60-1.10); ETHANOL < 0.010 GM/DL (0.0-0.010); GLUCOSE 92 MG/DL (70-104); LIPASE < 50 U/L (73-393); SODIUM 122 MMOL/L (135-145); TOTAL CARBON DIOXIDE 20.3 MMOL/L (24-32); TOTAL PROTEIN 6.7 G/DL (6.4-8.2); eGFR 69 ML/MIN
[2018-04-13 10:54] LABS: BASOPHILS % (AUTO) 0.9 % (0-1); EOSINOPHILS # (AUTO) 0.1 X10'3 (0-0.9); EOSINOPHILS % (AUTO) 1.2 % (0-6); HEMATOCRIT 33.1 % (42.0-52.0); HEMOGLOBIN 11.3 g/dl (14.0-17.9); LYMPHOCYTES # (AUTO) 1.2 X10'3 (1.1-4.8); MEAN CORPUSCULAR HEMOGLOBIN 34.1 PG (27.0-31.0); MEAN CORPUSCULAR HGB CONC 34.1 % (33.0-36.5); MEAN PLATELET VOLUME 9.7 FL (7.4-10.4); MONOCYTES # (AUTO) 0.5 X10'3 (0-0.9); MONOCYTES % (AUTO) 9.7 % (2-12); NEUTROPHILS # (AUTO) 3.3 X10'3 (1.8-7.7); NEUTROPHILS % (AUTO) 64.2 % (42-75); PLATELET COUNT 100 X10'3 (140-440); RED BLOOD COUNT 3.31 X10'6 (4.70-6.10); RED CELL DISTRIBUTION WIDTH 16.7 % (11.5-14.5); WHITE BLOOD COUNT 5.2 X10'3 (4.5-11.0)
[2018-04-13 10:55] LABS: URINE AMPHETAMINE SCREEN NEGATIVE (Neg); URINE BARBITUATE SCREEN NEGATIVE (Neg); URINE BENZODIAZEPINES SCREEN NEGATIVE (Neg); URINE CANNABINOID SCREEN POSITIVE (Neg); URINE COCAINE SCREEN NEGATIVE (Neg); URINE METHADONE SCREEN NEGATIVE (Neg); URINE OPIATE SCREEN NEGATIVE (Neg); URINE PHENCYCLIDINE SCREEN NEGATIVE (Neg)
[2018-04-13] MEDS ORDERED: FURO-150 PO (11:05)
[2018-04-13] MEDS ORDERED: ASPI-611 PO (11:12)
[2018-04-13 11:16] LABS: MAGNESIUM 1.4 MG/DL (1.5-2.4)
[2018-04-13] MEDS ORDERED: normal saline 1000ML IV soln IVB ONE (11:55)
[2018-04-13] MEDS ORDERED: iohexol 300mg/ml 100ml inj. ONE (12:15)
[2018-04-13] MEDS: magnesium/D5W IVPB 100 ML IV SCH ×2 (12:33→14:37)
[2018-04-13] MEDS ORDERED: LORazepam 2 mg/ml vial IV PRN (13:25)
[2018-04-13] MEDS ORDERED: dextrose 50%-water 50ml dispensing syringe IV PRN (13:25)
[2018-04-13] MEDS ORDERED: magnesium hydroxide 30ml (MOM) UD suspension PO PRN (13:25)
[2018-04-13] MEDS ORDERED: mag hydrox/Alum hydrox/simeth 30ml oral suspension PO PRN (13:25)
[2018-04-13] MEDS ORDERED: thiamine 100mg/ml 2ml inj. IV ONE (13:25)
[2018-04-13] MEDS ORDERED: ondansetron/PF 4mg/2ml inj IV PRN (13:25)
[2018-04-13] MEDS ORDERED: acetaminophen 325mg tablet PO PRN (13:25)
[2018-04-13] MEDS: normal saline 1000ml 1,000 ML IV SCH (14:39)
[2018-04-13 16:04] VITALS: BP 135/56
[2018-04-13 19:00] VITALS: BP 111/72
[2018-04-13] MEDS: carVEDilol 12.5mg tablet PO SCH (19:53)
[2018-04-13] MEDS: pantoprazole 40mg Tablet.DR PO SCH (19:53)
[2018-04-13] MEDS: morphine 4 MG/ML inj SYRINge IV PRN (19:54)
[2018-04-13] MEDS: sucralfate 1 gm tablet PO SCH (21:05)
[2018-04-14] VITALS: BP 116/74
[2018-04-14] MEDS: normal saline 1000ml 1,000 ML IV SCH ×2 (00:50→10:48)
[2018-04-14] MEDS: morphine 4 MG/ML inj SYRINge IV PRN ×3 (00:50→09:36)
[2018-04-14 04:00] VITALS: BP 111/66
[2018-04-14 06:21] LABS: BASOPHILS % (AUTO) 0.9 % (0-1); EOSINOPHILS # (AUTO) 0.1 X10'3 (0-0.9); EOSINOPHILS % (AUTO) 2.8 % (0-6); HEMATOCRIT 30.2 % (42.0-52.0); HEMOGLOBIN 10.4 g/dl (14.0-17.9); LYMPHOCYTES # (AUTO) 0.9 X10'3 (1.1-4.8); MEAN CORPUSCULAR HEMOGLOBIN 34.4 PG (27.0-31.0); MEAN CORPUSCULAR HGB CONC 34.4 % (33.0-36.5); MEAN PLATELET VOLUME 9.3 FL (7.4-10.4); MONOCYTES # (AUTO) 0.3 X10'3 (0-0.9); MONOCYTES % (AUTO) 9.6 % (2-12); NEUTROPHILS # (AUTO) 2.1 X10'3 (1.8-7.7); NEUTROPHILS % (AUTO) 60.7 % (42-75); PLATELET COUNT 88 X10'3 (140-440); RED BLOOD COUNT 3.02 X10'6 (4.70-6.10); WHITE BLOOD COUNT 3.5 X10'3 (4.5-11.0)
[2018-04-14 06:54] LABS: ALBUMIN 3.4 G/DL (3.4-5.0); ANION GAP 9 (8-16); BLOOD UREA NITROGEN 4 MG/DL (7-18); BUN/CREATININE RATIO 3.7 (5.4-32.0); CALCIUM 8.3 MG/DL (8.5-10.1); CHLORIDE 105 MMOL/L (99-107); CREATININE 1.08 MG/DL (0.60-1.10); GLUCOSE 81 MG/DL (70-104); POTASSIUM 3.9 MMOL/L (3.5-5.1); SODIUM 136 MMOL/L (135-145); TOTAL CARBON DIOXIDE 21.7 MMOL/L (24-32); eGFR 69 ML/MIN
[2018-04-14 07:06] VITALS: BP 136/84
[2018-04-14] MEDS: pantoprazole 40mg Tablet.DR PO SCH (07:30)
[2018-04-14] MEDS: carVEDilol 12.5mg tablet PO SCH (07:30)
[2018-04-14] MEDS: sucralfate 1 gm tablet PO SCH ×2 (07:31→12:54)
[2018-04-14 07:54] LABS: OCCULT BLOOD STOOL NEGATIVE (Neg)
[2018-04-14] MEDS ORDERED: thiamine 100mg tablet PO SCH (08:00)
[2018-04-14] MEDS ORDERED: lisinopril 5mg tablet PO SCH (08:00)
[2018-04-14] MEDS ORDERED: furosemide 40mg tablet PO SCH (08:00)
[2018-04-14] MEDS ORDERED: non-formulary drug (Aspirin (Aspir 81) 1 TAB) PO SCH (08:00)
[2018-04-14] MEDS ORDERED: aspirin 81mg tablet.DR PO SCH (08:00)
[2018-04-14 12:22] VITALS: BP 138/78
[2018-04-15] MEDS ORDERED: LORazepam 2 mg/ml vial IV PRN (13:25)
[2018-04-15] MEDS ORDERED: LORazepam 1 MG tablet PO PRN (13:25)
[2018-04-17] MEDS ORDERED: LORazepam 2 mg/ml vial IV PRN (13:25)
[2018-04-17] MEDS ORDERED: LORazepam 1 MG tablet PO PRN (13:25)
== END 2018-04-14 14:29 | disposition home or self-care (01) | DRG 247 ==
LOC: ER 09:21 → ED HOLD 13:25 → EDBEDREQ 14:57 → SUR 3N 15:38
PROVIDERS: ADMIT Family Medicine; ATTEND Family Medicine
PROC: BW211ZZ Computerized Tomography (CT Scan) of Abdomen and Pelvis using Low Osmolar Contrast (ICD-10-PCS; principal; 2018-04-13)
DX: K56.7 Ileus, unspecified (principal); I42.9 Cardiomyopathy, unspecified; I50.9 Heart failure, unspecified; K70.30 Alcoholic cirrhosis of liver without ascites; E86.0 Dehydration; I48.91 Unspecified atrial fibrillation; E87.1 Hypo-osmolality and hyponatremia; F10.20 Alcohol dependence, uncomplicated; F12.90 Cannabis use, unspecified, uncomplicated; Z87.01 Personal history of pneumonia (recurrent); Z79.899 Other long term (current) drug therapy; Z79.82 Long term (current) use of aspirin
CPT/HCPCS: 36415; 74018; 74177; 80048; 80053; 80305; 80320; 81003; 82272; 83690; 83735; 85025; 85610; 86885; 86900; 86901; 87070; 93005; 96374; 99285; J2270; J3411; J7030; Q9967

== ENCOUNTER 2018-04-18 18:27 | Emergency (ER) | payer MEDICAID, OTHER ==
[~2018-04-18] VITALS: Ht 185.4 cm; Wt 75.0 kg
[~2018-04-18 18:27] MED LIST changes: +ASPI-611 PO; -FOLI1TAB16 PO; +FURO-150 PO
[2018-04-18 19:44] LABS: BASOPHILS % (AUTO) 0.6 % (0-1); EOSINOPHILS # (AUTO) 0.1 X10'3 (0-0.9); HEMATOCRIT 32.8 % (42.0-52.0); HEMOGLOBIN 11.4 g/dl (14.0-17.9); LYMPHOCYTES # (AUTO) 1.7 X10'3 (1.1-4.8); LYMPHOCYTES % (AUTO) 38.7 % (21-51); MEAN CORPUSCULAR HEMOGLOBIN 33.6 PG (27.0-31.0); MEAN CORPUSCULAR HGB CONC 34.7 % (33.0-36.5); MEAN CORPUSCULAR VOLUME 96.9 FL (78-98); MEAN PLATELET VOLUME 8.4 FL (7.4-10.4); MONOCYTES # (AUTO) 0.4 X10'3 (0-0.9); MONOCYTES % (AUTO) 8.9 % (2-12); NEUTROPHILS # (AUTO) 2.2 X10'3 (1.8-7.7); NEUTROPHILS % (AUTO) 48.8 % (42-75); PLATELET COUNT 149 X10'3 (140-440); RED BLOOD COUNT 3.39 X10'6 (4.70-6.10); RED CELL DISTRIBUTION WIDTH 16.8 % (11.5-14.5); WHITE BLOOD COUNT 4.5 X10'3 (4.5-11.0)
[2018-04-18 19:52] LABS: INR 1.3 INR; PROTHROMBIN TIME 13.2 SECONDS (9.0-12.0)
[2018-04-18 19:55] LABS: ALANINE AMINOTRANSFERASE 22 U/L (12-78); ALBUMIN 3.6 G/DL (3.4-5.0); ALBUMIN/GLOBULIN RATIO 1.2 (1.1-1.5); ALKALINE PHOSPHATASE 119 IU/L (46-116); ANION GAP 13 (8-16); ASPARTATE AMINO TRANSFERASE 30 U/L (10-37); BILIRUBIN,TOTAL 0.8 MG/DL (0.1-1.0); BLOOD UREA NITROGEN 2 MG/DL (7-18); BUN/CREATININE RATIO 1.7 (5.4-32.0); CALCIUM 8.3 MG/DL (8.5-10.1); CHLORIDE 100 MMOL/L (99-107); CREATININE 1.15 MG/DL (0.60-1.10); GLUCOSE 102 MG/DL (70-104); POTASSIUM 3.5 MMOL/L (3.5-5.1); SODIUM 135 MMOL/L (135-145); TOTAL PROTEIN 6.6 G/DL (6.4-8.2); eGFR 64 ML/MIN
[2018-04-18] MEDS ORDERED: morphine 4 MG/ML inj SYRINge IV ONE ×2 (20:45→22:25)
[2018-04-18 20:51] LABS: CLARITY,URINE CLEAR (Clear); COLOR,URINE YELLOW (Yellow); GLUCOSE, URINE NEGATIVE (Neg); KETONES,URINE NEGATIVE (Neg); LEUKOCYTE ESTERASE ,URINE NEGATIVE (Neg); NITRITES, URINE NEGATIVE (Neg); OCCULT BLOOD,URINE NEGATIVE (Neg); PROTEIN,URINE NEGATIVE (Neg); UROBILINOGEN,URINE 0.2 E.U/dL (0.2-1.0)
[2018-04-18] MEDS ORDERED: ondansetron/PF 4mg/2ml inj IV ONE (20:55)
[2018-04-18] MEDS ORDERED: normal saline 1000ML IV soln IVB ONE (20:55)
[2018-04-18 20:56] LABS: UA COLLECTION TYPE CLN CATCH MIDSTREAM
[2018-04-18 21:15] LABS: LIPASE < 50 U/L (73-393)
[2018-04-18 22:07] VITALS: BP 118/73
[2018-04-19] MEDS ORDERED: DOCU-28 PO (13:33)
[2018-04-19] MEDS ORDERED: POLY17PO10 PO (13:33)
== END 2018-04-18 23:19 | disposition home or self-care (01) ==
LOC: ER 18:28
DX: R10.32 Left lower quadrant pain (principal); I48.91 Unspecified atrial fibrillation; I50.9 Heart failure, unspecified; F17.200 Nicotine dependence, unspecified, uncomplicated; F12.90 Cannabis use, unspecified, uncomplicated; F11.90 Opioid use, unspecified, uncomplicated; Z79.82 Long term (current) use of aspirin; Z79.899 Other long term (current) drug therapy
CPT/HCPCS: 36415; 74176; 80053; 81003; 83690; 85025; 85610; 96361; 96374; 96375; 96376; 99285; J2270; J2405; J7030

== ENCOUNTER 2018-04-19 11:50 | Emergency (ER) | payer MEDICAID, OTHER ==
[~2018-04-19] VITALS: Ht 182.9 cm; Wt 80.0 kg
[2018-04-19] MEDS ORDERED: normal saline 1000ML IV soln IVB ONE (12:00)
[2018-04-19] MEDS ORDERED: ondansetron/PF 4mg/2ml inj IV ONE (12:00)
[2018-04-19] MEDS: morphine 4 MG/ML inj SYRINge IV PRN ×2 (12:10→12:57)
[2018-04-19 12:33] LABS: BASOPHILS % (AUTO) 0.7 % (0-1); EOSINOPHILS # (AUTO) 0.1 X10'3 (0-0.9); EOSINOPHILS % (AUTO) 1.4 % (0-6); HEMATOCRIT 30.1 % (42.0-52.0); HEMOGLOBIN 10.1 g/dl (14.0-17.9); LYMPHOCYTES # (AUTO) 0.9 X10'3 (1.1-4.8); LYMPHOCYTES % (AUTO) 15.2 % (21-51); MEAN CORPUSCULAR HEMOGLOBIN 33.8 PG (27.0-31.0); MEAN CORPUSCULAR HGB CONC 33.5 % (33.0-36.5); MEAN CORPUSCULAR VOLUME 100.8 FL (78-98); MEAN PLATELET VOLUME 8.9 FL (7.4-10.4); MONOCYTES # (AUTO) 0.4 X10'3 (0-0.9); MONOCYTES % (AUTO) 7.1 % (2-12); NEUTROPHILS # (AUTO) 4.3 X10'3 (1.8-7.7); NEUTROPHILS % (AUTO) 75.6 % (42-75); PLATELET COUNT 124 X10'3 (140-440); RED BLOOD COUNT 2.99 X10'6 (4.70-6.10); RED CELL DISTRIBUTION WIDTH 16.7 % (11.5-14.5); WHITE BLOOD COUNT 5.7 X10'3 (4.5-11.0)
[2018-04-19 12:42] LABS: ALANINE AMINOTRANSFERASE 17 U/L (12-78); ALBUMIN 3.2 G/DL (3.4-5.0); ALBUMIN/GLOBULIN RATIO 1.2 (1.1-1.5); ALKALINE PHOSPHATASE 105 IU/L (46-116); ANION GAP 16 (8-16); ASPARTATE AMINO TRANSFERASE 26 U/L (10-37); BILIRUBIN,TOTAL 0.9 MG/DL (0.1-1.0); BLOOD UREA NITROGEN 3 MG/DL (7-18); BUN/CREATININE RATIO 2.5 (5.4-32.0); CHLORIDE 107 MMOL/L (99-107); CREATININE 1.22 MG/DL (0.60-1.10); GLUCOSE 143 MG/DL (70-104); LIPASE < 50 U/L (73-393); POTASSIUM 3.2 MMOL/L (3.5-5.1); SODIUM 141 MMOL/L (135-145); TOTAL CARBON DIOXIDE 17.8 MMOL/L (24-32); TOTAL PROTEIN 5.9 G/DL (6.4-8.2); eGFR 60 ML/MIN
[2018-04-19 12:51] LABS: ETHANOL < 0.010 GM/DL (0.0-0.010)
[2018-04-19] MEDS ORDERED: bisacodyl 10mg suppository rectal RC STA (13:02)
[2018-04-19] MEDS ORDERED: lactulose 20gm/30ml cup PO ONE (13:05)
[2018-04-19] MEDS ORDERED: verapamil 2.5 mg/ml inj IV ONE (13:05)
[2018-04-19] MEDS ORDERED: LORazepam 2 mg/ml vial IV ONE (13:05)
[2018-04-19] MEDS ORDERED: POLY17PO10 PO (13:33)
[2018-04-19] MEDS ORDERED: DOCU-28 PO (13:33)
[2018-04-19 14:19] VITALS: BP 139/85
== END 2018-04-19 14:20 | disposition home or self-care (01) ==
LOC: ER 11:50
DX: I48.91 Unspecified atrial fibrillation (principal); K59.00 Constipation, unspecified; I50.9 Heart failure, unspecified; F12.90 Cannabis use, unspecified, uncomplicated; F11.90 Opioid use, unspecified, uncomplicated; Z79.82 Long term (current) use of aspirin; Z79.899 Other long term (current) drug therapy
CPT/HCPCS: 36415; 71045; 74018; 80053; 80320; 83690; 83880; 84484; 85025; 93005; 96374; 96375; 99285; J2060; J2270; J2405; J7030

== ENCOUNTER 2018-04-21 03:10 | Inpatient (IN) | payer MEDICAID, OTHER ==
[~2018-04-21] VITALS: Ht 188 cm; Wt 84.6 kg
[2018-04-21] VITALS (9 sets, daily range): BP systolic 118–148; BP diastolic 70–108
[~2018-04-21 03:10] MED LIST changes: +DOCU-28 PO; +POLY17PO10 PO
[2018-04-21] MEDS ORDERED: morphine 4 MG/ML inj SYRINge IV ONE ×2 (03:50→07:10)
[2018-04-21] MEDS ORDERED: ondansetron/PF 4mg/2ml inj IV ONE ×2 (03:50→05:00)
[2018-04-21] MEDS ORDERED: verapamil 2.5 mg/ml inj IV ONE (04:00)
[2018-04-21 04:20] LABS: BASOPHILS % (AUTO) 0.6 % (0-1); EOSINOPHILS # (AUTO) 0.1 X10'3 (0-0.9); EOSINOPHILS % (AUTO) 2.6 % (0-6); HEMATOCRIT 31.5 % (42.0-52.0); HEMOGLOBIN 10.7 g/dl (14.0-17.9); LYMPHOCYTES # (AUTO) 1.2 X10'3 (1.1-4.8); MEAN PLATELET VOLUME 9.1 FL (7.4-10.4); MONOCYTES # (AUTO) 0.3 X10'3 (0-0.9); MONOCYTES % (AUTO) 7.3 % (2-12); NEUTROPHILS # (AUTO) 2.5 X10'3 (1.8-7.7); NEUTROPHILS % (AUTO) 61.5 % (42-75); PLATELET COUNT 100 X10'3 (140-440); RED BLOOD COUNT 3.15 X10'6 (4.70-6.10); RED CELL DISTRIBUTION WIDTH 17.2 % (11.5-14.5); WHITE BLOOD COUNT 4.1 X10'3 (4.5-11.0)
[2018-04-21 04:26] LABS: CLARITY,URINE CLEAR (Clear); COLOR,URINE YELLOW (Yellow); GLUCOSE, URINE NEGATIVE (Neg); KETONES,URINE NEGATIVE (Neg); LEUKOCYTE ESTERASE ,URINE NEGATIVE (Neg); NITRITES, URINE NEGATIVE (Neg); OCCULT BLOOD,URINE NEGATIVE (Neg); PH,URINE 6.5 (4.8-8.0); PROTEIN,URINE 30 mg/dl (Neg); UROBILINOGEN,URINE 0.2 E.U/dL (0.2-1.0)
[2018-04-21 04:32] LABS: UA COLLECTION TYPE CLN CATCH MIDSTREAM
[2018-04-21 04:33] LABS: BACTERIA,URINE NONE SEEN /HPF (Neg); RBC,URINE NONE SEEN /HPF (0-2); SQUAMOUS EPITHELIAL CELL,UR FEW /LPF (FEW); WBC,URINE NONE SEEN /HPF (0-4)
[2018-04-21 04:34] LABS: URINE AMPHETAMINE SCREEN NEGATIVE (Neg); URINE BARBITUATE SCREEN NEGATIVE (Neg); URINE BENZODIAZEPINES SCREEN NEGATIVE (Neg); URINE CANNABINOID SCREEN NEGATIVE (Neg); URINE COCAINE SCREEN NEGATIVE (Neg); URINE METHADONE SCREEN NEGATIVE (Neg); URINE OPIATE SCREEN POSITIVE (Neg); URINE PHENCYCLIDINE SCREEN NEGATIVE (Neg)
[2018-04-21 04:37] LABS: ALANINE AMINOTRANSFERASE 16 U/L (12-78); ALBUMIN 3.6 G/DL (3.4-5.0); ALBUMIN/GLOBULIN RATIO 1.2 (1.1-1.5); ALKALINE PHOSPHATASE 127 IU/L (46-116); ANION GAP 13 (8-16); ASPARTATE AMINO TRANSFERASE 26 U/L (10-37); BILIRUBIN,TOTAL 1.2 MG/DL (0.1-1.0); BLOOD UREA NITROGEN 2 MG/DL (7-18); BUN/CREATININE RATIO 1.4 (5.4-32.0); CHLORIDE 105 MMOL/L (99-107); CREATININE 1.41 MG/DL (0.60-1.10); GLUCOSE 91 MG/DL (70-104); LIPASE < 50 U/L (73-393); MAGNESIUM 1.5 MG/DL (1.5-2.4); POTASSIUM 3.9 MMOL/L (3.5-5.1); SODIUM 139 MMOL/L (135-145); TOTAL CARBON DIOXIDE 21.4 MMOL/L (24-32); TOTAL PROTEIN 6.5 G/DL (6.4-8.2); eGFR 51 ML/MIN
[2018-04-21 04:53] LABS: INR 1.2 INR; PARTIAL THROMBOPLASTIN TIME 25 SECONDS (22-32); PROTHROMBIN TIME 12.7 SECONDS (9.0-12.0)
[2018-04-21] MEDS: diltiazem-NS 100mg/100ml 100 ML IV SCH ×2 (06:14→08:09)
[2018-04-21] MEDS ORDERED: thiamine 100mg/ml 2ml inj. IV ONE (06:15)
[2018-04-21] MEDS ORDERED: cyanocobalamin 1,000 mcg/ml inj IM ONE (06:15)
[2018-04-21] MEDS ORDERED: SPIR1TAB4 PO (07:14)
[2018-04-21] MEDS ORDERED: magnesium hydroxide 30ml (MOM) UD suspension PO PRN (08:40)
[2018-04-21] MEDS: normal saline 1000ml 1,000 ML IV SCH ×2 (09:07→18:38)
[2018-04-21] MEDS: enoxaparin 100mg/ml syringe SUBCUT SCH ×2 (11:05→19:06)
[2018-04-21] MEDS ORDERED: morphine 2 MG/ML inj. syringe IV PRN (11:20)
[2018-04-21] MEDS: morphine 4 MG/ML inj SYRINge IV PRN ×3 (12:02→21:39)
[2018-04-21] MEDS: sucralfate 1 gm tablet PO SCH ×3 (13:06→19:04)
[2018-04-21] MEDS ORDERED: LORazepam 2 mg/ml vial IV ONE (13:25)
[2018-04-21] MEDS: carVEDilol 12.5mg tablet PO SCH (19:04)
[2018-04-21] MEDS: pantoprazole 40mg Tablet.DR PO SCH (19:04)
[2018-04-21] MEDS: LORazepam 1 MG tablet PO PRN (19:30)
[2018-04-22] VITALS (8 sets, daily range): BP systolic 108–140; BP diastolic 64–90
[2018-04-22] MEDS: morphine 4 MG/ML inj SYRINge IV PRN ×5 (03:29→22:28)
[2018-04-22] MEDS: normal saline 1000ml 1,000 ML IV SCH ×2 (04:45→15:15)
[2018-04-22 05:50] LABS: BASOPHILS % (AUTO) 0.4 % (0-1); EOSINOPHILS # (AUTO) 0.2 X10'3 (0-0.9); HEMATOCRIT 27.5 % (42.0-52.0); HEMOGLOBIN 9.3 g/dl (14.0-17.9); LYMPHOCYTES # (AUTO) 1.2 X10'3 (1.1-4.8); MEAN CORPUSCULAR HEMOGLOBIN 33.8 PG (27.0-31.0); MEAN CORPUSCULAR HGB CONC 33.9 % (33.0-36.5); MEAN CORPUSCULAR VOLUME 99.7 FL (78-98); MEAN PLATELET VOLUME 9.2 FL (7.4-10.4); MONOCYTES # (AUTO) 0.2 X10'3 (0-0.9); MONOCYTES % (AUTO) 6.6 % (2-12); NEUTROPHILS # (AUTO) 1.7 X10'3 (1.8-7.7); PLATELET COUNT 79 X10'3 (140-440); RED BLOOD COUNT 2.76 X10'6 (4.70-6.10); RED CELL DISTRIBUTION WIDTH 17.5 % (11.5-14.5); WHITE BLOOD COUNT 3.2 X10'3 (4.5-11.0)
[2018-04-22 06:11] LABS: ANION GAP 12 (8-16); BLOOD UREA NITROGEN 4 MG/DL (7-18); BUN/CREATININE RATIO 3.3 (5.4-32.0); CALCIUM 7.6 MG/DL (8.5-10.1); CHLORIDE 106 MMOL/L (99-107); GLUCOSE 79 MG/DL (70-104); SODIUM 139 MMOL/L (135-145); TOTAL CARBON DIOXIDE 21.2 MMOL/L (24-32); eGFR 61 ML/MIN
[2018-04-22] MEDS: diltiazem-NS 100mg/100ml 100 ML IV SCH (06:26)
[2018-04-22] MEDS: LORazepam 1 MG tablet PO PRN ×2 (06:49→15:12)
[2018-04-22] MEDS ORDERED: aspirin 81mg tablet.DR PO SCH (08:00)
[2018-04-22] MEDS: pantoprazole 40mg Tablet.DR PO SCH ×2 (08:27→20:10)
[2018-04-22] MEDS: sucralfate 1 gm tablet PO SCH ×4 (08:27→20:10)
[2018-04-22] MEDS: lisinopril 5mg tablet PO SCH (08:27)
[2018-04-22] MEDS: carVEDilol 12.5mg tablet PO SCH ×2 (08:27→20:10)
[2018-04-22] MEDS: enoxaparin 100mg/ml syringe SUBCUT SCH ×2 (08:28→20:12)
[2018-04-22] MEDS ORDERED: LORazepam 1 MG tablet PO ONE (19:55)
[2018-04-22] MEDS: diatr meglu/diatrizoate 30ml oral sol.-(3 dose) bottle PO SCH (20:18)
[2018-04-23] MEDS: normal saline 1000ml 1,000 ML IV SCH ×4 (00:38→17:05)
[2018-04-23] MEDS: morphine 4 MG/ML inj SYRINge IV PRN ×3 (02:54→19:53)
[2018-04-23] MEDS: LORazepam 1 MG tablet PO PRN (04:31)
[2018-04-23 05:35] LABS: EOSINOPHILS # (AUTO) 0.1 X10'3 (0-0.9); EOSINOPHILS % (AUTO) 4.7 % (0-6); HEMATOCRIT 26.7 % (42.0-52.0); HEMOGLOBIN 9.1 g/dl (14.0-17.9); LYMPHOCYTES % (AUTO) 34.2 % (21-51); MEAN CORPUSCULAR HEMOGLOBIN 33.7 PG (27.0-31.0); MEAN CORPUSCULAR VOLUME 99.3 FL (78-98); MONOCYTES # (AUTO) 0.2 X10'3 (0-0.9); MONOCYTES % (AUTO) 7.5 % (2-12); NEUTROPHILS # (AUTO) 1.5 X10'3 (1.8-7.7); NEUTROPHILS % (AUTO) 52.6 % (42-75); PLATELET COUNT 73 X10'3 (140-440); RED BLOOD COUNT 2.69 X10'6 (4.70-6.10); RED CELL DISTRIBUTION WIDTH 17.2 % (11.5-14.5); WHITE BLOOD COUNT 2.8 X10'3 (4.5-11.0)
[2018-04-23 06:05] LABS: ANION GAP 12 (8-16); BLOOD UREA NITROGEN 5 MG/DL (7-18); BUN/CREATININE RATIO 4.8 (5.4-32.0); CALCIUM 7.4 MG/DL (8.5-10.1); CHLORIDE 105 MMOL/L (99-107); CREATININE 1.04 MG/DL (0.60-1.10); GLUCOSE 84 MG/DL (70-104); POTASSIUM 3.8 MMOL/L (3.5-5.1); SODIUM 137 MMOL/L (135-145); TOTAL CARBON DIOXIDE 20.3 MMOL/L (24-32); eGFR 72 ML/MIN
[2018-04-23 06:30] VITALS: BP_SYST 126; BP_SYST 138; BP_DIAS 78; BP_DIAS 87
[2018-04-23] MEDS: carVEDilol 12.5mg tablet PO SCH ×2 (06:47→19:53)
[2018-04-23 06:48] LABS: ANISOCYTOSIS 1+; BASOPHILS % (MANUAL) 2 % (0-1); EOSINOPHILS % (MANUAL) 5 % (0-6); LYMPHOCYTES % (MANUAL) 31 % (21-51); MONOCYTES % (MANUAL) 8 % (2-12); NEUTROPHILS % (MANUAL) 54 % (42-75); PLATELET ESTIMATE DECREASED; SMUDGE CELLS 2+; TOTAL CELLS COUNTED 100
[2018-04-23] MEDS ORDERED: dextrose 50%-water 50ml dispensing syringe IV PRN (07:45)
[2018-04-23] MEDS ORDERED: haloperidol lactate 5mg/ml inj IM PRN (07:45)
[2018-04-23] MEDS: diatr meglu/diatrizoate 30ml oral sol.-(3 dose) bottle PO SCH ×2 (08:07→10:58)
[2018-04-23] MEDS: pantoprazole 40mg Tablet.DR PO SCH ×2 (08:09→19:53)
[2018-04-23] MEDS: lisinopril 5mg tablet PO SCH (08:09)
[2018-04-23] MEDS: sucralfate 1 gm tablet PO SCH ×4 (08:10→19:53)
[2018-04-23] MEDS: enoxaparin 100mg/ml syringe SUBCUT SCH (08:13)
[2018-04-23] MEDS: folic acid 1mg tablet PO SCH (08:49)
[2018-04-23] MEDS: multivitamins, therapeutics tablet PO SCH (08:49)
[2018-04-23] MEDS: thiamine 100mg tablet PO SCH (08:49)
[2018-04-23] MEDS: LORazepam 2 mg/ml vial IV PRN ×4 (08:50→21:07)
[2018-04-23] MEDS ORDERED: nicotine 14mg patch - 24hr TD ONE (09:00)
[2018-04-23 11:00] VITALS: BP 133/63
[2018-04-23 15:00] VITALS: BP 133/93
[2018-04-23 19:00] VITALS: BP 139/80
[2018-04-23] MEDS: ondansetron/PF 4mg/2ml inj IV PRN (19:52)
[2018-04-23] MEDS ORDERED: diltiazem 5mg/ml 5ml inj. IV ONE (21:55)
[2018-04-23 23:00] VITALS: BP 140/99
[2018-04-23] MEDS: haloperidol 5mg tablet PO PRN (23:27)
[2018-04-24] MEDS: LORazepam 2 mg/ml vial IV PRN ×4 (02:57→23:35)
[2018-04-24 03:00] VITALS: BP 144/86
[2018-04-24 05:30] VITALS: BP 132/92
[2018-04-24 05:45] LABS: BASOPHILS % (AUTO) 0.6 % (0-1); EOSINOPHILS # (AUTO) 0.1 X10'3 (0-0.9); EOSINOPHILS % (AUTO) 3.4 % (0-6); HEMATOCRIT 29.3 % (42.0-52.0); HEMOGLOBIN 9.9 g/dl (14.0-17.9); LYMPHOCYTES # (AUTO) 0.8 X10'3 (1.1-4.8); MEAN CORPUSCULAR HEMOGLOBIN 33.8 PG (27.0-31.0); MEAN CORPUSCULAR HGB CONC 33.8 % (33.0-36.5); MEAN PLATELET VOLUME 9.3 FL (7.4-10.4); MONOCYTES # (AUTO) 0.3 X10'3 (0-0.9); MONOCYTES % (AUTO) 7.8 % (2-12); NEUTROPHILS # (AUTO) 2.1 X10'3 (1.8-7.7); NEUTROPHILS % (AUTO) 63.2 % (42-75); PLATELET COUNT 76 X10'3 (140-440); RED BLOOD COUNT 2.93 X10'6 (4.70-6.10); RED CELL DISTRIBUTION WIDTH 17.9 % (11.5-14.5); WHITE BLOOD COUNT 3.3 X10'3 (4.5-11.0)
[2018-04-24 05:50] LABS: ALBUMIN 3.1 G/DL (3.4-5.0); ANION GAP 10 (8-16); BLOOD UREA NITROGEN 6 MG/DL (7-18); BUN/CREATININE RATIO 5.6 (5.4-32.0); CALCIUM 8.1 MG/DL (8.5-10.1); CHLORIDE 105 MMOL/L (99-107); CREATININE 1.07 MG/DL (0.60-1.10); GLUCOSE 93 MG/DL (70-104); POTASSIUM 4.1 MMOL/L (3.5-5.1); SODIUM 136 MMOL/L (135-145); TOTAL CARBON DIOXIDE 21.1 MMOL/L (24-32); eGFR 70 ML/MIN
[2018-04-24] MEDS: sucralfate 1 gm tablet PO SCH ×4 (09:14→19:55)
[2018-04-24] MEDS: folic acid 1mg tablet PO SCH (09:15)
[2018-04-24] MEDS: carVEDilol 12.5mg tablet PO SCH ×2 (09:15→19:55)
[2018-04-24] MEDS: pantoprazole 40mg Tablet.DR PO SCH ×2 (09:15→19:55)
[2018-04-24] MEDS: thiamine 100mg tablet PO SCH (09:16)
[2018-04-24] MEDS: multivitamins, therapeutics tablet PO SCH (09:16)
[2018-04-24] MEDS: lisinopril 5mg tablet PO SCH (09:16)
[2018-04-24] MEDS: nicotine 14mg patch - 24hr TD SCH (09:17)
[2018-04-24] MEDS: normal saline 1000ml 1,000 ML IV SCH (10:36)
[2018-04-24 11:00] VITALS: BP 158/99
[2018-04-24] MEDS: morphine 4 MG/ML inj SYRINge IV PRN ×2 (13:47→19:57)
[2018-04-24 15:00] VITALS: BP 142/94
[2018-04-24 18:00] VITALS: BP 147/104
[2018-04-24 22:00] VITALS: BP 147/100
[2018-04-25] MEDS: LORazepam 2 mg/ml vial IV PRN ×3 (00:34→18:56)
[2018-04-25] MEDS: haloperidol 5mg tablet PO PRN ×2 (01:46→16:03)
[2018-04-25 02:00] VITALS: BP 147/96
[2018-04-25 05:30] VITALS: BP 133/89
[2018-04-25 05:42] LABS: BASOPHILS % (AUTO) 0.5 % (0-1); EOSINOPHILS # (AUTO) 0.1 X10'3 (0-0.9); EOSINOPHILS % (AUTO) 3.5 % (0-6); HEMATOCRIT 27.4 % (42.0-52.0); HEMOGLOBIN 9.2 g/dl (14.0-17.9); LYMPHOCYTES # (AUTO) 0.6 X10'3 (1.1-4.8); LYMPHOCYTES % (AUTO) 18.8 % (21-51); MEAN CORPUSCULAR HEMOGLOBIN 33.7 PG (27.0-31.0); MEAN CORPUSCULAR HGB CONC 33.5 % (33.0-36.5); MEAN CORPUSCULAR VOLUME 100.4 FL (78-98); MEAN PLATELET VOLUME 9.3 FL (7.4-10.4); MONOCYTES # (AUTO) 0.3 X10'3 (0-0.9); MONOCYTES % (AUTO) 7.8 % (2-12); NEUTROPHILS # (AUTO) 2.3 X10'3 (1.8-7.7); NEUTROPHILS % (AUTO) 69.4 % (42-75); PLATELET COUNT 68 X10'3 (140-440); RED BLOOD COUNT 2.73 X10'6 (4.70-6.10); WHITE BLOOD COUNT 3.4 X10'3 (4.5-11.0)
[2018-04-25 05:47] LABS: ALBUMIN 2.9 G/DL (3.4-5.0); ANION GAP 9 (8-16); BLOOD UREA NITROGEN 6 MG/DL (7-18); BUN/CREATININE RATIO 6.2 (5.4-32.0); CALCIUM 7.9 MG/DL (8.5-10.1); CHLORIDE 108 MMOL/L (99-107); CREATININE 0.97 MG/DL (0.60-1.10); GLUCOSE 87 MG/DL (70-104); POTASSIUM 3.7 MMOL/L (3.5-5.1); SODIUM 138 MMOL/L (135-145); TOTAL CARBON DIOXIDE 21.5 MMOL/L (24-32); eGFR 78 ML/MIN
[2018-04-25] MEDS ORDERED: LORazepam 1 MG tablet PO PRN (07:45)
[2018-04-25] MEDS ORDERED: LORazepam 2 mg/ml vial IV PRN (07:45)
[2018-04-25] MEDS: sucralfate 1 gm tablet PO SCH ×4 (09:09→20:08)
[2018-04-25] MEDS: folic acid 1mg tablet PO SCH (09:09)
[2018-04-25] MEDS: carVEDilol 12.5mg tablet PO SCH ×2 (09:09→20:08)
[2018-04-25] MEDS: pantoprazole 40mg Tablet.DR PO SCH ×2 (09:10→20:08)
[2018-04-25] MEDS: multivitamins, therapeutics tablet PO SCH (09:10)
[2018-04-25] MEDS: lisinopril 5mg tablet PO SCH (09:10)
[2018-04-25] MEDS: thiamine 100mg tablet PO SCH (09:10)
[2018-04-25] MEDS: nicotine 14mg patch - 24hr TD SCH (09:11)
[2018-04-25 11:00] VITALS: BP 148/98
[2018-04-25 15:00] VITALS: BP 151/102
[2018-04-25] MEDS: normal saline 1000ml 1,000 ML IV SCH (15:31)
[2018-04-25 18:00] VITALS: BP 156/101
[2018-04-25] MEDS ORDERED: LORazepam 1 MG tablet PO ONE (20:00)
[2018-04-25] MEDS: LORazepam 1 MG tablet PO SCH (20:08)
[2018-04-25 22:00] VITALS: BP 143/91
[2018-04-25] MEDS ORDERED: diltiazem 5mg/ml 5ml inj. IV ONE (22:05)
[2018-04-26 02:00] VITALS: BP 137/83
[2018-04-26] MEDS: LORazepam 2 mg/ml vial IV PRN (03:50)
[2018-04-26] MEDS: haloperidol 5mg tablet PO PRN (05:02)
[2018-04-26] MEDS: normal saline 1000ml 1,000 ML IV SCH (05:03)
[2018-04-26 05:58] LABS: BASOPHILS % (AUTO) 0.5 % (0-1); EOSINOPHILS # (AUTO) 0.1 X10'3 (0-0.9); EOSINOPHILS % (AUTO) 2.9 % (0-6); HEMATOCRIT 28.7 % (42.0-52.0); HEMOGLOBIN 9.7 g/dl (14.0-17.9); LYMPHOCYTES # (AUTO) 0.8 X10'3 (1.1-4.8); LYMPHOCYTES % (AUTO) 19.1 % (21-51); MEAN CORPUSCULAR HEMOGLOBIN 33.8 PG (27.0-31.0); MEAN CORPUSCULAR HGB CONC 33.8 % (33.0-36.5); MEAN PLATELET VOLUME 9.7 FL (7.4-10.4); MONOCYTES # (AUTO) 0.4 X10'3 (0-0.9); MONOCYTES % (AUTO) 9.4 % (2-12); NEUTROPHILS # (AUTO) 2.7 X10'3 (1.8-7.7); NEUTROPHILS % (AUTO) 68.1 % (42-75); PLATELET COUNT 72 X10'3 (140-440); RED BLOOD COUNT 2.87 X10'6 (4.70-6.10); RED CELL DISTRIBUTION WIDTH 18.1 % (11.5-14.5)
[2018-04-26 06:00] VITALS: BP 148/97
[2018-04-26 06:15] LABS: ALBUMIN 3.1 G/DL (3.4-5.0); ANION GAP 13 (8-16); BLOOD UREA NITROGEN 8 MG/DL (7-18); BUN/CREATININE RATIO 7.7 (5.4-32.0); CALCIUM 8.1 MG/DL (8.5-10.1); CHLORIDE 107 MMOL/L (99-107); CREATININE 1.04 MG/DL (0.60-1.10); GLUCOSE 114 MG/DL (70-104); POTASSIUM 3.8 MMOL/L (3.5-5.1); SODIUM 139 MMOL/L (135-145); TOTAL CARBON DIOXIDE 19.4 MMOL/L (24-32); eGFR 72 ML/MIN
[2018-04-26] MEDS: pantoprazole 40mg Tablet.DR PO SCH ×2 (07:56→20:57)
[2018-04-26] MEDS: nicotine 14mg patch - 24hr TD SCH (07:56)
[2018-04-26] MEDS: LORazepam 1 MG tablet PO SCH (07:56)
[2018-04-26] MEDS: thiamine 100mg tablet PO SCH (07:56)
[2018-04-26] MEDS: multivitamins, therapeutics tablet PO SCH (07:56)
[2018-04-26] MEDS: carVEDilol 12.5mg tablet PO SCH ×2 (07:56→20:57)
[2018-04-26] MEDS: folic acid 1mg tablet PO SCH (07:56)
[2018-04-26] MEDS: sucralfate 1 gm tablet PO SCH ×5 (07:56→20:57)
[2018-04-26] MEDS: lisinopril 5mg tablet PO SCH (07:56)
[2018-04-26 11:00] VITALS: BP 159/107
[2018-04-26 15:00] VITALS: BP 148/115
[2018-04-26 18:00] VITALS: BP 142/97
[2018-04-26] MEDS: LORazepam 0.5 MG tablet PO SCH (20:57)
[2018-04-26 22:00] VITALS: BP 140/108
[2018-04-27] VITALS (8 sets, daily range): BP systolic 134–154; BP diastolic 60–107
[2018-04-27] MEDS: LORazepam 2 mg/ml vial IV PRN ×3 (00:07→23:38)
[2018-04-27] MEDS ORDERED: diltiazem 5mg/ml 5ml inj. IV ONE (00:55)
[2018-04-27] MEDS: LORazepam 0.5 MG tablet PO SCH ×2 (07:05→19:33)
[2018-04-27] MEDS: multivitamins, therapeutics tablet PO SCH (07:05)
[2018-04-27] MEDS: sucralfate 1 gm tablet PO SCH ×4 (07:05→22:09)
[2018-04-27] MEDS: folic acid 1mg tablet PO SCH (07:05)
[2018-04-27] MEDS: thiamine 100mg tablet PO SCH (07:05)
[2018-04-27] MEDS: pantoprazole 40mg Tablet.DR PO SCH ×2 (07:05→19:33)
[2018-04-27] MEDS: carVEDilol 12.5mg tablet PO SCH ×2 (07:05→19:33)
[2018-04-27] MEDS: lisinopril 5mg tablet PO SCH (07:05)
[2018-04-27] MEDS: nicotine 14mg patch - 24hr TD SCH (07:07)
[2018-04-27] MEDS ORDERED: LORazepam 1 MG tablet PO PRN (07:45)
[2018-04-27] MEDS ORDERED: LORazepam 2 mg/ml vial IV PRN (07:45)
[2018-04-27] MEDS ORDERED: methylPREDNISolone sod succ 125mg/2ml vial IV ONE (15:50)
[2018-04-28 02:00] VITALS: BP 145/99
[2018-04-28] MEDS: LORazepam 2 mg/ml vial IV PRN ×5 (03:46→21:09)
[2018-04-28] MEDS ORDERED: diltiazem 5mg/ml 5ml inj. IV ONE (05:45)
[2018-04-28 06:00] VITALS: BP 135/95
[2018-04-28] MEDS: LORazepam 0.5 MG tablet PO SCH ×2 (07:15→19:39)
[2018-04-28] MEDS: nicotine 14mg patch - 24hr TD SCH (08:00)
[2018-04-28] MEDS: pantoprazole 40mg Tablet.DR PO SCH ×2 (08:57→19:39)
[2018-04-28] MEDS: multivitamins, therapeutics tablet PO SCH (08:57)
[2018-04-28] MEDS: thiamine 100mg tablet PO SCH (08:57)
[2018-04-28] MEDS: lisinopril 5mg tablet PO SCH (08:57)
[2018-04-28] MEDS: sucralfate 1 gm tablet PO SCH ×4 (08:57→19:39)
[2018-04-28] MEDS: folic acid 1mg tablet PO SCH (08:57)
[2018-04-28 11:00] VITALS: BP 131/97
[2018-04-28] MEDS: diltiazem 30mg tablet PO SCH ×2 (13:02→19:39)
[2018-04-28 15:00] VITALS: BP 141/87
[2018-04-28 19:00] VITALS: BP 148/88
[2018-04-28 23:00] VITALS: BP 128/85
[2018-04-29] MEDS: LORazepam 2 mg/ml vial IV PRN ×2 (01:06→12:26)
[2018-04-29] MEDS: diltiazem 30mg tablet PO SCH ×4 (01:12→18:57)
[2018-04-29 03:00] VITALS: BP 140/85
[2018-04-29 07:14] LABS: BASOPHILS % (AUTO) 0.1 % (0-1); EOSINOPHILS % (AUTO) 0.7 % (0-6); HEMOGLOBIN 10.3 g/dl (14.0-17.9); LYMPHOCYTES # (AUTO) 0.9 X10'3 (1.1-4.8); MEAN CORPUSCULAR HEMOGLOBIN 33.6 PG (27.0-31.0); MEAN CORPUSCULAR HGB CONC 33.3 % (33.0-36.5); MEAN CORPUSCULAR VOLUME 100.9 FL (78-98); MEAN PLATELET VOLUME 9.5 FL (7.4-10.4); MONOCYTES # (AUTO) 0.7 X10'3 (0-0.9); MONOCYTES % (AUTO) 13.2 % (2-12); NEUTROPHILS # (AUTO) 3.9 X10'3 (1.8-7.7); PLATELET COUNT 114 X10'3 (140-440); RED BLOOD COUNT 3.07 X10'6 (4.70-6.10); RED CELL DISTRIBUTION WIDTH 19.1 % (11.5-14.5); WHITE BLOOD COUNT 5.6 X10'3 (4.5-11.0)
[2018-04-29] MEDS: thiamine 100mg tablet PO SCH (07:37)
[2018-04-29] MEDS: LORazepam 0.5 MG tablet PO SCH ×2 (07:37→18:57)
[2018-04-29] MEDS: pantoprazole 40mg Tablet.DR PO SCH ×2 (07:38→18:57)
[2018-04-29] MEDS: folic acid 1mg tablet PO SCH (07:38)
[2018-04-29] MEDS: sucralfate 1 gm tablet PO SCH ×4 (07:38→18:57)
[2018-04-29] MEDS: multivitamins, therapeutics tablet PO SCH (07:40)
[2018-04-29] MEDS: lisinopril 5mg tablet PO SCH (07:40)
[2018-04-29] MEDS: nicotine 14mg patch - 24hr TD SCH (07:41)
[2018-04-29 07:45] LABS: ALANINE AMINOTRANSFERASE 14 U/L (12-78); ALBUMIN 3.3 G/DL (3.4-5.0); ALBUMIN/GLOBULIN RATIO 1.1 (1.1-1.5); ALKALINE PHOSPHATASE 90 IU/L (46-116); ANION GAP 10 (8-16); ASPARTATE AMINO TRANSFERASE 14 U/L (10-37); BILIRUBIN,TOTAL 1.4 MG/DL (0.1-1.0); BLOOD UREA NITROGEN 10 MG/DL (7-18); BUN/CREATININE RATIO 8.4 (5.4-32.0); CALCIUM 8.7 MG/DL (8.5-10.1); CHLORIDE 105 MMOL/L (99-107); CREATININE 1.19 MG/DL (0.60-1.10); GLUCOSE 95 MG/DL (70-104); POTASSIUM 3.8 MMOL/L (3.5-5.1); SODIUM 141 MMOL/L (135-145); TOTAL CARBON DIOXIDE 25.8 MMOL/L (24-32); TOTAL PROTEIN 6.4 G/DL (6.4-8.2); eGFR 62 ML/MIN
[2018-04-29 11:00] VITALS: BP 139/97
[2018-04-29 15:00] VITALS: BP 154/92
[2018-04-29 19:00] VITALS: BP 159/94
[2018-04-29 23:03] VITALS: BP 150/92
[2018-04-30] MEDS: LORazepam 2 mg/ml vial IV PRN ×3 (00:17→22:14)
[2018-04-30] MEDS: diltiazem 30mg tablet PO SCH ×4 (00:17→19:21)
[2018-04-30 03:06] VITALS: BP 143/90
[2018-04-30 05:30] VITALS: BP 148/97
[2018-04-30 06:08] LABS: BASOPHILS % (AUTO) 0.7 % (0-1); EOSINOPHILS # (AUTO) 0.1 X10'3 (0-0.9); EOSINOPHILS % (AUTO) 2.6 % (0-6); HEMATOCRIT 29.7 % (42.0-52.0); LYMPHOCYTES % (AUTO) 20.1 % (21-51); MEAN CORPUSCULAR HEMOGLOBIN 33.5 PG (27.0-31.0); MEAN CORPUSCULAR HGB CONC 33.7 % (33.0-36.5); MEAN CORPUSCULAR VOLUME 99.5 FL (78-98); MEAN PLATELET VOLUME 9.2 FL (7.4-10.4); MONOCYTES # (AUTO) 0.6 X10'3 (0-0.9); MONOCYTES % (AUTO) 11.6 % (2-12); NEUTROPHILS # (AUTO) 3.1 X10'3 (1.8-7.7); PLATELET COUNT 118 X10'3 (140-440); RED BLOOD COUNT 2.99 X10'6 (4.70-6.10); WHITE BLOOD COUNT 4.8 X10'3 (4.5-11.0)
[2018-04-30 06:16] LABS: ALANINE AMINOTRANSFERASE 18 U/L (12-78); ALBUMIN 3.3 G/DL (3.4-5.0); ALBUMIN/GLOBULIN RATIO 1.1 (1.1-1.5); ALKALINE PHOSPHATASE 88 IU/L (46-116); ANION GAP 10 (8-16); ASPARTATE AMINO TRANSFERASE 20 U/L (10-37); BILIRUBIN,TOTAL 1.5 MG/DL (0.1-1.0); BLOOD UREA NITROGEN 6 MG/DL (7-18); BUN/CREATININE RATIO 6.3 (5.4-32.0); CALCIUM 8.7 MG/DL (8.5-10.1); CHLORIDE 103 MMOL/L (99-107); CREATININE 0.95 MG/DL (0.60-1.10); GLUCOSE 84 MG/DL (70-104); POTASSIUM 3.2 MMOL/L (3.5-5.1); SODIUM 140 MMOL/L (135-145); TOTAL CARBON DIOXIDE 26.9 MMOL/L (24-32); TOTAL PROTEIN 6.3 G/DL (6.4-8.2); eGFR 80 ML/MIN
[2018-04-30] MEDS: LACTOSE-FREE FOOD 237ML (BOOST) PO SCH ×3 (08:00→18:22)
[2018-04-30] MEDS: multivitamins, therapeutics tablet PO SCH (08:09)
[2018-04-30] MEDS: lisinopril 5mg tablet PO SCH (08:09)
[2018-04-30] MEDS: thiamine 100mg tablet PO SCH (08:10)
[2018-04-30] MEDS: LORazepam 0.5 MG tablet PO SCH ×2 (08:10→19:20)
[2018-04-30] MEDS: sucralfate 1 gm tablet PO SCH ×4 (08:10→19:20)
[2018-04-30] MEDS: folic acid 1mg tablet PO SCH (08:10)
[2018-04-30] MEDS: pantoprazole 40mg Tablet.DR PO SCH ×2 (08:10→19:21)
[2018-04-30] MEDS: nicotine 14mg patch - 24hr TD SCH (08:10)
[2018-04-30 11:00] VITALS: BP 154/97
[2018-04-30] MEDS ORDERED: potassium Cl 40MEQ/NS 500ml 500 ML IV PRN ×2 (13:45)
[2018-04-30] MEDS ORDERED: potassium Cl 20 mEq SR tablet PO PRN (13:45)
[2018-04-30] MEDS: albuterol 2.5 MG/3 ML nebule NEB SCH ×2 (14:00→20:00)
[2018-04-30 15:00] VITALS: BP 127/72
[2018-04-30] MEDS: acetaminophen 325mg tablet PO PRN (16:10)
[2018-04-30] MEDS: potassium Cl 20 mEq SR tablet PO PRN ×2 (17:28→21:05)
[2018-04-30 19:00] VITALS: BP 142/86
[2018-04-30 23:00] VITALS: BP 146/91
[2018-05-01] MEDS: diltiazem 30mg tablet PO SCH ×4 (01:13→19:29)
[2018-05-01] MEDS: potassium Cl 20 mEq SR tablet PO PRN (01:14)
[2018-05-01] MEDS: LORazepam 2 mg/ml vial IV PRN ×4 (02:17→23:04)
[2018-05-01] MEDS: albuterol 2.5 MG/3 ML nebule NEB SCH ×4 (02:17→20:03)
[2018-05-01 03:00] VITALS: BP 142/83
[2018-05-01 06:00] VITALS: BP 148/86
[2018-05-01] MEDS: LACTOSE-FREE FOOD 237ML (BOOST) PO SCH ×3 (08:00→18:00)
[2018-05-01 08:47] LABS: MAGNESIUM 1.7 MG/DL (1.5-2.4); POTASSIUM 3.7 MMOL/L (3.5-5.1)
[2018-05-01] MEDS: thiamine 100mg tablet PO SCH (08:48)
[2018-05-01] MEDS: pantoprazole 40mg Tablet.DR PO SCH ×2 (08:48→19:29)
[2018-05-01] MEDS: multivitamins, therapeutics tablet PO SCH (08:48)
[2018-05-01] MEDS: sucralfate 1 gm tablet PO SCH ×4 (08:48→19:29)
[2018-05-01] MEDS: LORazepam 0.5 MG tablet PO SCH ×2 (08:48→19:28)
[2018-05-01] MEDS: lisinopril 5mg tablet PO SCH (08:48)
[2018-05-01] MEDS: folic acid 1mg tablet PO SCH (08:49)
[2018-05-01] MEDS: nicotine 14mg patch - 24hr TD SCH (08:49)
[2018-05-01 11:00] VITALS: BP 121/73
[2018-05-01 15:00] VITALS: BP 127/72
[2018-05-01 19:00] VITALS: BP 146/90
[2018-05-01 23:00] VITALS: BP 143/79
[2018-05-02] MEDS: diltiazem 30mg tablet PO SCH ×4 (00:55→19:59)
[2018-05-02] MEDS: albuterol 2.5 MG/3 ML nebule NEB SCH ×4 (02:48→21:45)
[2018-05-02] MEDS: LORazepam 2 mg/ml vial IV PRN (02:49)
[2018-05-02 03:00] VITALS: BP 148/85
[2018-05-02 06:11] LABS: MAGNESIUM 1.6 MG/DL (1.5-2.4); POTASSIUM 3.3 MMOL/L (3.5-5.1)
[2018-05-02 07:23] VITALS: BP 154/98
[2018-05-02] MEDS: LACTOSE-FREE FOOD 237ML (BOOST) PO SCH ×3 (08:00→18:00)
[2018-05-02] MEDS: multivitamins, therapeutics tablet PO SCH (08:29)
[2018-05-02] MEDS: lisinopril 5mg tablet PO SCH (08:29)
[2018-05-02] MEDS: thiamine 100mg tablet PO SCH (08:29)
[2018-05-02] MEDS: LORazepam 0.5 MG tablet PO SCH (08:29)
[2018-05-02] MEDS: pantoprazole 40mg Tablet.DR PO SCH ×2 (08:29→19:59)
[2018-05-02] MEDS: folic acid 1mg tablet PO SCH (08:29)
[2018-05-02] MEDS: sucralfate 1 gm tablet PO SCH ×4 (08:29→19:59)
[2018-05-02] MEDS: nicotine 14mg patch - 24hr TD SCH (08:30)
[2018-05-02] MEDS ORDERED: gabapentin 300mg capsule PO ONE (13:30)
[2018-05-02 15:00] VITALS: BP 135/95
[2018-05-02 18:00] VITALS: BP 143/89
[2018-05-02] MEDS: potassium Cl 20 mEq SR tablet PO PRN (20:48)
[2018-05-02 22:00] VITALS: BP 134/89
[2018-05-03] MEDS: diltiazem 30mg tablet PO SCH ×4 (01:47→20:01)
[2018-05-03] MEDS: acetaminophen 325mg tablet PO PRN ×3 (01:48→22:17)
[2018-05-03] MEDS: potassium Cl 20 mEq SR tablet PO PRN (01:55)
[2018-05-03 02:00] VITALS: BP 143/93
[2018-05-03] MEDS ORDERED: LORazepam 1 MG tablet PO ONE (03:15)
[2018-05-03] MEDS: albuterol 2.5 MG/3 ML nebule NEB SCH ×4 (03:20→20:01)
[2018-05-03] MEDS ORDERED: metoprolol tartrate 1mg/ml inj IV ONE (03:55)
[2018-05-03 06:00] VITALS: BP 134/90
[2018-05-03 06:29] LABS: BASOPHILS % (AUTO) 0.8 % (0-1); EOSINOPHILS # (AUTO) 0.3 X10'3 (0-0.9); EOSINOPHILS % (AUTO) 4.6 % (0-6); HEMATOCRIT 30.4 % (42.0-52.0); HEMOGLOBIN 10.2 g/dl (14.0-17.9); LYMPHOCYTES # (AUTO) 0.9 X10'3 (1.1-4.8); LYMPHOCYTES % (AUTO) 14.6 % (21-51); MEAN CORPUSCULAR HEMOGLOBIN 33.2 PG (27.0-31.0); MEAN CORPUSCULAR HGB CONC 33.5 % (33.0-36.5); MEAN PLATELET VOLUME 9.4 FL (7.4-10.4); MONOCYTES # (AUTO) 0.7 X10'3 (0-0.9); MONOCYTES % (AUTO) 11.1 % (2-12); NEUTROPHILS # (AUTO) 4.3 X10'3 (1.8-7.7); NEUTROPHILS % (AUTO) 68.9 % (42-75); PLATELET COUNT 154 X10'3 (140-440); RED BLOOD COUNT 3.07 X10'6 (4.70-6.10); RED CELL DISTRIBUTION WIDTH 19.1 % (11.5-14.5); WHITE BLOOD COUNT 6.3 X10'3 (4.5-11.0)
[2018-05-03 06:39] LABS: ANION GAP 7 (8-16); BLOOD UREA NITROGEN 10 MG/DL (7-18); BUN/CREATININE RATIO 10.3 (5.4-32.0); CALCIUM 8.4 MG/DL (8.5-10.1); CHLORIDE 103 MMOL/L (99-107); CREATININE 0.97 MG/DL (0.60-1.10); GLUCOSE 98 MG/DL (70-104); MAGNESIUM 1.7 MG/DL (1.5-2.4); POTASSIUM 3.8 MMOL/L (3.5-5.1); SODIUM 137 MMOL/L (135-145); TOTAL CARBON DIOXIDE 27.3 MMOL/L (24-32); eGFR 78 ML/MIN
[2018-05-03] MEDS: folic acid 1mg tablet PO SCH (07:34)
[2018-05-03] MEDS: lisinopril 5mg tablet PO SCH (07:34)
[2018-05-03] MEDS: multivitamins, therapeutics tablet PO SCH (07:34)
[2018-05-03] MEDS: pantoprazole 40mg Tablet.DR PO SCH ×2 (07:34→20:02)
[2018-05-03] MEDS: sucralfate 1 gm tablet PO SCH ×4 (07:34→20:02)
[2018-05-03] MEDS: thiamine 100mg tablet PO SCH (07:35)
[2018-05-03] MEDS: nicotine 14mg patch - 24hr TD SCH (07:35)
[2018-05-03] MEDS: LACTOSE-FREE FOOD 237ML (BOOST) PO SCH ×3 (07:35→18:00)
[2018-05-03 11:00] VITALS: BP 145/99
[2018-05-03 15:00] VITALS: BP 123/72
[2018-05-03 18:00] VITALS: BP 138/77
[2018-05-03 22:00] VITALS: BP 133/84
[2018-05-04] MEDS: mag hydrox/Alum hydrox/simeth 30ml oral suspension PO PRN ×2 (01:43→13:15)
[2018-05-04 02:00] VITALS: BP 136/83
[2018-05-04] MEDS: diltiazem 30mg tablet PO SCH ×4 (02:32→19:48)
[2018-05-04] MEDS: albuterol 2.5 MG/3 ML nebule NEB SCH ×4 (02:42→20:09)
[2018-05-04] MEDS: acetaminophen 325mg tablet PO PRN (03:58)
[2018-05-04 06:00] VITALS: BP 151/99
[2018-05-04 06:22] LABS: ALBUMIN 2.9 G/DL (3.4-5.0); ANION GAP 7 (8-16); BLOOD UREA NITROGEN 10 MG/DL (7-18); BUN/CREATININE RATIO 10.5 (5.4-32.0); CALCIUM 8.2 MG/DL (8.5-10.1); CHLORIDE 100 MMOL/L (99-107); CREATININE 0.95 MG/DL (0.60-1.10); GLUCOSE 92 MG/DL (70-104); MAGNESIUM 1.7 MG/DL (1.5-2.4); POTASSIUM 3.7 MMOL/L (3.5-5.1); SODIUM 134 MMOL/L (135-145); TOTAL CARBON DIOXIDE 27.5 MMOL/L (24-32); eGFR 80 ML/MIN
[2018-05-04 07:13] LABS: HEMOGLOBIN 10.2 g/dl (14.0-17.9); MEAN CORPUSCULAR HGB CONC 32.8 % (33.0-36.5); MEAN CORPUSCULAR VOLUME 100.5 FL (78-98); RED BLOOD COUNT 3.09 X10'6 (4.70-6.10); WHITE BLOOD COUNT 5.9 X10'3 (4.5-11.0)
[2018-05-04 07:14] LABS: BASOPHILS % (AUTO) 0.3 % (0-1); EOSINOPHILS # (AUTO) 0.3 X10'3 (0-0.9); EOSINOPHILS % (AUTO) 4.9 % (0-6); LYMPHOCYTES # (AUTO) 0.9 X10'3 (1.1-4.8); LYMPHOCYTES % (AUTO) 15.4 % (21-51); MEAN PLATELET VOLUME 9.7 FL (7.4-10.4); MONOCYTES # (AUTO) 0.6 X10'3 (0-0.9); MONOCYTES % (AUTO) 9.5 % (2-12); NEUTROPHILS # (AUTO) 4.1 X10'3 (1.8-7.7); NEUTROPHILS % (AUTO) 69.9 % (42-75); PLATELET COUNT 137 X10'3 (140-440); RED CELL DISTRIBUTION WIDTH 18.7 % (11.5-14.5)
[2018-05-04] MEDS: LACTOSE-FREE FOOD 237ML (BOOST) PO SCH ×3 (08:00→18:42)
[2018-05-04] MEDS: folic acid 1mg tablet PO SCH (08:29)
[2018-05-04] MEDS: multivitamins, therapeutics tablet PO SCH (08:29)
[2018-05-04] MEDS: nicotine 14mg patch - 24hr TD SCH (08:29)
[2018-05-04] MEDS: lisinopril 5mg tablet PO SCH (08:29)
[2018-05-04] MEDS: thiamine 100mg tablet PO SCH (08:29)
[2018-05-04] MEDS: pantoprazole 40mg Tablet.DR PO SCH ×2 (08:29→19:48)
[2018-05-04] MEDS: ondansetron/PF 4mg/2ml inj IV PRN (08:30)
[2018-05-04] MEDS: sucralfate 1 gm tablet PO SCH ×4 (08:30→21:09)
[2018-05-04 11:00] VITALS: BP 128/72
[2018-05-04 15:00] VITALS: BP 124/79
[2018-05-04] MEDS: gabapentin 100mg capsule PO SCH ×2 (16:12→23:20)
[2018-05-04 19:00] VITALS: BP 138/88
[2018-05-04 23:00] VITALS: BP 124/86
[2018-05-05 03:00] VITALS: BP 129/80
[2018-05-05] MEDS: albuterol 2.5 MG/3 ML nebule NEB SCH ×4 (03:13→21:28)
[2018-05-05] MEDS: diltiazem 30mg tablet PO SCH ×4 (03:23→19:42)
[2018-05-05 05:58] LABS: BASOPHILS % (AUTO) 0.7 % (0-1); EOSINOPHILS # (AUTO) 0.2 X10'3 (0-0.9); EOSINOPHILS % (AUTO) 4.5 % (0-6); HEMATOCRIT 29.8 % (42.0-52.0); HEMOGLOBIN 9.8 g/dl (14.0-17.9); LYMPHOCYTES # (AUTO) 0.8 X10'3 (1.1-4.8); LYMPHOCYTES % (AUTO) 16.7 % (21-51); MEAN CORPUSCULAR HEMOGLOBIN 32.8 PG (27.0-31.0); MEAN CORPUSCULAR HGB CONC 32.8 % (33.0-36.5); MEAN CORPUSCULAR VOLUME 100.1 FL (78-98); MEAN PLATELET VOLUME 9.2 FL (7.4-10.4); MONOCYTES # (AUTO) 0.6 X10'3 (0-0.9); MONOCYTES % (AUTO) 12.6 % (2-12); NEUTROPHILS # (AUTO) 3.3 X10'3 (1.8-7.7); NEUTROPHILS % (AUTO) 65.5 % (42-75); PLATELET COUNT 135 X10'3 (140-440); RED BLOOD COUNT 2.98 X10'6 (4.70-6.10); RED CELL DISTRIBUTION WIDTH 18.4 % (11.5-14.5)
[2018-05-05 06:00] VITALS: BP 124/69
[2018-05-05 06:26] LABS: PLATELET ESTIMATE DECREASED
[2018-05-05 06:27] LABS: ANISOCYTOSIS 2+; HYPOCHROMASIA 1+; POLYCHROMASIA 1+; TARGET CELLS 1+
[2018-05-05 06:34] LABS: ALBUMIN 2.9 G/DL (3.4-5.0); ANION GAP 7 (8-16); BLOOD UREA NITROGEN 9 MG/DL (7-18); BUN/CREATININE RATIO 8.8 (5.4-32.0); CALCIUM 8.1 MG/DL (8.5-10.1); CHLORIDE 101 MMOL/L (99-107); CREATININE 1.02 MG/DL (0.60-1.10); GLUCOSE 105 MG/DL (70-104); MAGNESIUM 1.8 MG/DL (1.5-2.4); POTASSIUM 4.2 MMOL/L (3.5-5.1); SODIUM 136 MMOL/L (135-145); eGFR 74 ML/MIN
[2018-05-05] MEDS: pantoprazole 40mg Tablet.DR PO SCH ×2 (07:30→19:42)
[2018-05-05] MEDS: thiamine 100mg tablet PO SCH (07:30)
[2018-05-05] MEDS: sucralfate 1 gm tablet PO SCH ×4 (07:30→21:23)
[2018-05-05] MEDS: gabapentin 100mg capsule PO SCH ×3 (07:31→23:30)
[2018-05-05] MEDS: nicotine 14mg patch - 24hr TD SCH (07:31)
[2018-05-05] MEDS: folic acid 1mg tablet PO SCH (07:31)
[2018-05-05] MEDS: lisinopril 5mg tablet PO SCH (07:31)
[2018-05-05] MEDS: multivitamins, therapeutics tablet PO SCH (07:31)
[2018-05-05] MEDS: LACTOSE-FREE FOOD 237ML (BOOST) PO SCH ×3 (08:00→18:00)
[2018-05-05] MEDS: acetaminophen 325mg tablet PO PRN (10:42)
[2018-05-05 11:00] VITALS: BP 95/60
[2018-05-05] MEDS ORDERED: HYDROcodone/acetaminophen 5mg/325mg tablet PO ONE (12:05)
[2018-05-05 15:00] VITALS: BP 116/68
[2018-05-05 19:00] VITALS: BP 123/69
[2018-05-06 00:15] VITALS: BP 123/70
[2018-05-06] MEDS: diltiazem 30mg tablet PO SCH ×4 (01:03→20:38)
[2018-05-06] MEDS: albuterol 2.5 MG/3 ML nebule NEB SCH ×4 (02:56→20:58)
[2018-05-06] MEDS ORDERED: acetaminophen 325mg tablet PO PRN (03:15)
[2018-05-06] MEDS ORDERED: morphine 2 MG/ML inj. syringe IV PRN (03:15)
[2018-05-06 05:35] LABS: BASOPHILS % (AUTO) 0.8 % (0-1); EOSINOPHILS # (AUTO) 0.2 X10'3 (0-0.9); EOSINOPHILS % (AUTO) 3.9 % (0-6); HEMATOCRIT 27.5 % (42.0-52.0); HEMOGLOBIN 9.1 g/dl (14.0-17.9); LYMPHOCYTES # (AUTO) 0.8 X10'3 (1.1-4.8); MEAN CORPUSCULAR VOLUME 99.9 FL (78-98); MEAN PLATELET VOLUME 9.2 FL (7.4-10.4); MONOCYTES # (AUTO) 0.6 X10'3 (0-0.9); MONOCYTES % (AUTO) 15.2 % (2-12); NEUTROPHILS # (AUTO) 2.6 X10'3 (1.8-7.7); NEUTROPHILS % (AUTO) 62.1 % (42-75); PLATELET COUNT 133 X10'3 (140-440); RED BLOOD COUNT 2.75 X10'6 (4.70-6.10); RED CELL DISTRIBUTION WIDTH 18.2 % (11.5-14.5); WHITE BLOOD COUNT 4.2 X10'3 (4.5-11.0)
[2018-05-06 06:18] LABS: ALBUMIN 2.8 G/DL (3.4-5.0); ANION GAP 5 (8-16); BLOOD UREA NITROGEN 11 MG/DL (7-18); BUN/CREATININE RATIO 11.2 (5.4-32.0); CALCIUM 8.6 MG/DL (8.5-10.1); CHLORIDE 101 MMOL/L (99-107); CREATININE 0.98 MG/DL (0.60-1.10); GLUCOSE 93 MG/DL (70-104); POTASSIUM 4.2 MMOL/L (3.5-5.1); SODIUM 136 MMOL/L (135-145); TOTAL CARBON DIOXIDE 30.4 MMOL/L (24-32); eGFR 78 ML/MIN
[2018-05-06 07:26] VITALS: BP 114/65
[2018-05-06] MEDS: nicotine 14mg patch - 24hr TD SCH (07:39)
[2018-05-06] MEDS: sucralfate 1 gm tablet PO SCH ×4 (07:40→20:38)
[2018-05-06] MEDS: folic acid 1mg tablet PO SCH (07:40)
[2018-05-06] MEDS: gabapentin 100mg capsule PO SCH ×3 (07:41→23:28)
[2018-05-06] MEDS: thiamine 100mg tablet PO SCH (07:41)
[2018-05-06] MEDS: multivitamins, therapeutics tablet PO SCH (07:41)
[2018-05-06] MEDS: lisinopril 5mg tablet PO SCH (07:42)
[2018-05-06] MEDS: pantoprazole 40mg Tablet.DR PO SCH ×2 (07:42→20:38)
[2018-05-06] MEDS: LACTOSE-FREE FOOD 237ML (BOOST) PO SCH ×3 (08:00→18:00)
[2018-05-06 08:18] LABS: ANISOCYTOSIS 2+; PLATELET ESTIMATE DECREASED; POLYCHROMASIA 1+
[2018-05-06 11:30] VITALS: BP 123/69
[2018-05-06] MEDS: acetaminophen 325mg tablet PO PRN (15:05)
[2018-05-06 19:00] VITALS: BP 124/65
[2018-05-06 23:51] VITALS: BP 119/67
[2018-05-07] MEDS: diltiazem 30mg tablet PO SCH ×4 (02:23→20:20)
[2018-05-07] MEDS: mag hydrox/Alum hydrox/simeth 30ml oral suspension PO PRN (02:25)
[2018-05-07] MEDS: albuterol 2.5 MG/3 ML nebule NEB SCH ×4 (03:00→20:22)
[2018-05-07 05:47] LABS: BASOPHILS # (AUTO) 0.1 X10'3 (0-0.2); BASOPHILS % (AUTO) 1.8 % (0-1); EOSINOPHILS # (AUTO) 0.2 X10'3 (0-0.9); EOSINOPHILS % (AUTO) 4.8 % (0-6); HEMATOCRIT 27.8 % (42.0-52.0); HEMOGLOBIN 9.3 g/dl (14.0-17.9); LYMPHOCYTES # (AUTO) 0.7 X10'3 (1.1-4.8); LYMPHOCYTES % (AUTO) 16.7 % (21-51); MEAN CORPUSCULAR HGB CONC 33.4 % (33.0-36.5); MEAN CORPUSCULAR VOLUME 98.8 FL (78-98); MEAN PLATELET VOLUME 9.5 FL (7.4-10.4); MONOCYTES # (AUTO) 0.6 X10'3 (0-0.9); MONOCYTES % (AUTO) 12.9 % (2-12); NEUTROPHILS # (AUTO) 2.8 X10'3 (1.8-7.7); NEUTROPHILS % (AUTO) 63.8 % (42-75); PLATELET COUNT 139 X10'3 (140-440); RED BLOOD COUNT 2.82 X10'6 (4.70-6.10); RED CELL DISTRIBUTION WIDTH 19.2 % (11.5-14.5); WHITE BLOOD COUNT 4.4 X10'3 (4.5-11.0)
[2018-05-07 05:51] LABS: ALBUMIN 2.9 G/DL (3.4-5.0); ANION GAP 6 (8-16); BLOOD UREA NITROGEN 12 MG/DL (7-18); CALCIUM 8.7 MG/DL (8.5-10.1); CHLORIDE 101 MMOL/L (99-107); CREATININE 0.92 MG/DL (0.60-1.10); GLUCOSE 91 MG/DL (70-104); POTASSIUM 4.2 MMOL/L (3.5-5.1); SODIUM 134 MMOL/L (135-145); TOTAL CARBON DIOXIDE 26.7 MMOL/L (24-32); eGFR 83 ML/MIN
[2018-05-07 07:45] VITALS: BP 129/80
[2018-05-07] MEDS: LACTOSE-FREE FOOD 237ML (BOOST) PO SCH ×3 (08:00→18:00)
[2018-05-07 08:09] LABS: ANISOCYTOSIS 2+; PLATELET ESTIMATE DECREASED
[2018-05-07] MEDS: gabapentin 100mg capsule PO SCH ×2 (08:50→15:43)
[2018-05-07] MEDS: pantoprazole 40mg Tablet.DR PO SCH ×2 (08:50→20:20)
[2018-05-07] MEDS: sucralfate 1 gm tablet PO SCH ×4 (08:50→20:19)
[2018-05-07] MEDS: folic acid 1mg tablet PO SCH (08:50)
[2018-05-07] MEDS: lisinopril 5mg tablet PO SCH (08:51)
[2018-05-07] MEDS: thiamine 100mg tablet PO SCH (08:51)
[2018-05-07] MEDS: multivitamins, therapeutics tablet PO SCH (08:51)
[2018-05-07] MEDS: nicotine 14mg patch - 24hr TD SCH (08:52)
[2018-05-07 12:07] VITALS: BP 110/62
[2018-05-07] MEDS ORDERED: CARV-50 PO (12:35)
[2018-05-07] MEDS ORDERED: MULT-1179 PO (12:35)
[2018-05-07] MEDS ORDERED: LACT-28 PO (12:35)
[2018-05-07] MEDS ORDERED: NICO-631 TD (12:35)
[2018-05-07] MEDS ORDERED: GABA100C PO (12:35)
[2018-05-07] MEDS ORDERED: FOLI1TAB16 PO (12:35)
[2018-05-07] MEDS ORDERED: POTA10TA36 PO (12:35)
[2018-05-07 20:00] VITALS: BP 130/69
[2018-05-07] MEDS ORDERED: temazepam 15mg capsule PO ONE (20:35)
[2018-05-07] MEDS: acetaminophen 325mg tablet PO PRN (21:02)
[2018-05-08] VITALS: BP 132/71
[2018-05-08] MEDS: gabapentin 100mg capsule PO SCH ×2 (01:00→09:15)
[2018-05-08] MEDS: diltiazem 30mg tablet PO SCH ×2 (01:20→09:14)
[2018-05-08] MEDS: albuterol 2.5 MG/3 ML nebule NEB SCH ×2 (02:13→08:13)
[2018-05-08 06:54] VITALS: BP 131/73
[2018-05-08] MEDS: LACTOSE-FREE FOOD 237ML (BOOST) PO SCH (08:00)
[2018-05-08] MEDS: sucralfate 1 gm tablet PO SCH (09:15)
[2018-05-08] MEDS: nicotine 14mg patch - 24hr TD SCH (09:15)
[2018-05-08] MEDS: multivitamins, therapeutics tablet PO SCH (09:15)
[2018-05-08] MEDS: thiamine 100mg tablet PO SCH (09:15)
[2018-05-08] MEDS: folic acid 1mg tablet PO SCH (09:15)
[2018-05-08] MEDS: pantoprazole 40mg Tablet.DR PO SCH (09:15)
[2018-05-08] MEDS: lisinopril 5mg tablet PO SCH (09:15)
== END 2018-05-08 12:55 | disposition home health service (06) | DRG 201 ==
LOC: ER 03:11 → ED HOLD 08:38 → EDBEDREQ 14:00 → PCU 3S 14:30 → SUR 3N 05-06 00:11
PROVIDERS: ADMIT Family Medicine; ATTEND Family Medicine
DX: I48.91 Unspecified atrial fibrillation (principal); G93.41 Metabolic encephalopathy; N17.9 Acute kidney failure, unspecified; E87.4 Mixed disorder of acid-base balance; D61.818 Other pancytopenia; I50.32 Chronic diastolic (congestive) heart failure; D69.6 Thrombocytopenia, unspecified; K74.60 Unspecified cirrhosis of liver; B19.20 Unspecified viral hepatitis C without hepatic coma; F17.210 Nicotine dependence, cigarettes, uncomplicated; G89.29 Other chronic pain; R10.9 Unspecified abdominal pain; K21.9 Gastro-esophageal reflux disease without esophagitis; D53.9 Nutritional anemia, unspecified; F10.239 Alcohol dependence with withdrawal, unspecified; K57.30 Diverticulosis of large intestine without perforation or abscess without bleeding; F12.90 Cannabis use, unspecified, uncomplicated; N18.9 Chronic kidney disease, unspecified; Z66 Do not resuscitate; Y90.9 Presence of alcohol in blood, level not specified; E87.6 Hypokalemia; R51 Headache; Z87.11 Personal history of peptic ulcer disease; Z95.2 Presence of prosthetic heart valve; Z79.01 Long term (current) use of anticoagulants; Z91.14 Patient's other noncompliance with medication regimen; Z78.1 Physical restraint status; Z91.19 Patient's noncompliance with other medical treatment and regimen
CPT/HCPCS: 36415; 71045; 74018; 74150; 74176; 80048; 80053; 80305; 81001; 82140; 82948; 83690; 83735; 83880; 84132; 84484; 85025; 85610; 85730; 87045; 87046; 87070; 93005; 93306; 94640; 94760; 96372; 96374; 96375; 96376; 97110; 97116; 97161; 97530; 99285; A6212; A6258; A6449; J1650; J2060; J2270; J2405; J2930; J3411; J3420; J3490; J7030; Q9963

== ENCOUNTER 2019-01-20 02:06 | Inpatient (IN) | payer MEDICAID, OTHER ==
[~2019-01-20] VITALS: Ht 182.9 cm; Wt 86.6 kg
[2019-01-20] VITALS (9 sets, daily range): BP systolic 108–140; BP diastolic 73–101
[~2019-01-20 02:06] MED LIST changes: -DOCU-28 PO; +FOLI1TAB16 PO; +GABA100C PO; +LACT-28 PO; +MULT-1179 PO; +NICO-631 TD; -POLY17PO10 PO; +POTA10TA36 PO; +SPIR1TAB4 PO
[2019-01-20 02:42] LABS: BASOPHILS % (AUTO) 0.6 % (0-1); EOSINOPHILS % (AUTO) 0.8 % (0-6); HEMATOCRIT 35.2 % (42.0-52.0); HEMOGLOBIN 12.1 g/dl (14.0-17.9); LYMPHOCYTES # (AUTO) 1.2 X10'3 (1.1-4.8); LYMPHOCYTES % (AUTO) 23.8 % (21-51); MEAN CORPUSCULAR HEMOGLOBIN 36.6 PG (27.0-31.0); MEAN CORPUSCULAR HGB CONC 34.3 g/dL (33.0-36.5); MEAN CORPUSCULAR VOLUME 106.7 FL (78-98); MEAN PLATELET VOLUME 8.9 FL (7.4-10.4); MONOCYTES # (AUTO) 0.7 X10'3 (0-0.9); MONOCYTES % (AUTO) 12.9 % (2-12); NEUTROPHILS # (AUTO) 3.2 X10'3 (1.8-7.7); NEUTROPHILS % (AUTO) 61.9 % (42-75); PLATELET COUNT 102 X10'3 (140-440); RED CELL DISTRIBUTION WIDTH 16.6 % (11.5-14.5); WHITE BLOOD COUNT 5.2 X10'3 (4.5-11.0)
[2019-01-20 03:00] LABS: INR 1.3 INR; PROTHROMBIN TIME 13.3 SECONDS (9.0-12.0)
[2019-01-20 03:01] LABS: ALANINE AMINOTRANSFERASE 42 U/L (12-78); ALBUMIN 3.6 G/DL (3.4-5.0); ALBUMIN/GLOBULIN RATIO 1.1 (1.1-1.5); ALKALINE PHOSPHATASE 161 IU/L (46-116); ANION GAP 13 (8-16); ASPARTATE AMINO TRANSFERASE 127 U/L (10-37); BILIRUBIN,TOTAL 1.4 MG/DL (0.1-1.0); BLOOD UREA NITROGEN 2 MG/DL (7-18); BUN/CREATININE RATIO 1.8 (5.4-32.0); CALCIUM 8.5 MG/DL (8.5-10.1); CHLORIDE 88 MMOL/L (99-107); CREATININE 1.13 MG/DL (0.60-1.10); GLUCOSE 101 MG/DL (70-104); POTASSIUM 4.4 MMOL/L (3.5-5.1); TOTAL CARBON DIOXIDE 19.2 MMOL/L (24-32); TOTAL PROTEIN 6.9 G/DL (6.4-8.2); eGFR 66 ML/MIN
--- NOTE | 2019-01-20 03:01 | NUR ---
DR CHAHAL AT BEDSIDE WITH PT
[2019-01-20 03:04] LABS: SODIUM 120 MMOL/L (135-145)
[2019-01-20] MEDS ORDERED: proCHLORperazine 10 MG/2 ml inj IV ONE (03:05)
[2019-01-20] MEDS ORDERED: normal saline 1000ml 1,000 ML IV ONE (03:05)
[2019-01-20] MEDS ORDERED: ondansetron/PF 4mg/2ml inj IV ONE (03:05)
[2019-01-20] MEDS ORDERED: LORazepam 2 mg/ml vial IV ONE (03:05)
[2019-01-20] MEDS ORDERED: famotidine/PF 10 mg/ml inj IV ONE (03:05)
[2019-01-20] MEDS ORDERED: METO-467 PO (03:21)
[2019-01-20] MEDS ORDERED: CHOL400T32 PO (03:22)
[2019-01-20] MEDS ORDERED: TRAM50TA2 PO (03:23)
[2019-01-20] MEDS ORDERED: CYA500T PO (03:23)
[2019-01-20] MEDS ORDERED: ASPI-845 PO (03:26)
--- NOTE | 2019-01-20 03:41 | NUR ---
MEDS TO PHARMACY
[2019-01-20] MEDS ORDERED: LORazepam 1 MG tablet PO PRN (03:45)
[2019-01-20] MEDS ORDERED: mag hydrox/Alum hydrox/simeth 30ml oral suspension PO PRN (03:45)
[2019-01-20] MEDS ORDERED: magnesium hydroxide 30ml (MOM) UD suspension PO PRN (03:45)
[2019-01-20] MEDS ORDERED: acetaminophen 325mg tablet PO PRN ×2 (03:45)
[2019-01-20] MEDS ORDERED: ondansetron/PF 4mg/2ml inj IV PRN (03:45)
[2019-01-20] MEDS ORDERED: haloperidol 5mg tablet PO PRN (03:45)
[2019-01-20] MEDS ORDERED: LORazepam 2 mg/ml vial IV PRN ×2 (03:45→08:25)
[2019-01-20] MEDS ORDERED: haloperidol lactate 5mg/ml inj IM PRN (03:45)
[2019-01-20 03:46] LABS: ETHANOL 0.111 GM/DL (0.0-0.010)
[2019-01-20] MEDS: normal saline 1000ml 1,000 ML IV SCH ×2 (04:33→09:18)
--- NOTE | 2019-01-20 07:36 | NUR ---
Page sent to Dr Tovar, patient rec to floor and placed on tele. Pt in afib with RVR, rate 150-160. This information was not relayed in report from ER nurse. No treatments noted to have been given in ER. Awaiting rtn call from Dr Tovar. Pt denies chest pain or sob. Placed on 2 liters n/c for sats 88%. blood pressure 121/101 at this time.
[2019-01-20] MEDS ORDERED: pantoprazole 40mg Tablet.DR PO SCH (08:00)
[2019-01-20] MEDS ORDERED: cholecalciferol (vitamin D) 400 unit tablet PO SCH (08:00)
[2019-01-20] MEDS ORDERED: traMADol 50MG tablet PO PRN (08:00)
--- NOTE | 2019-01-20 08:02 | NUR ---
Dr Tovar on floor to see patient
[2019-01-20] MEDS: lisinopril 5mg tablet PO SCH (09:01)
[2019-01-20] MEDS: aspirin 325mg tablet, delayed-release (Ecotrin) PO SCH (09:01)
[2019-01-20] MEDS: multivitamins, therapeutics tablet PO SCH (09:01)
[2019-01-20] MEDS: thiamine 100mg tablet PO SCH (09:01)
[2019-01-20] MEDS: folic acid 1mg tablet PO SCH (09:02)
[2019-01-20] MEDS: cyanocobalamin 500mcg tablet PO SCH (09:02)
[2019-01-20] MEDS: metoprolol tartrate 50mg tablet PO SCH ×2 (09:02→19:31)
[2019-01-20] MEDS: pantoprazole 40mg Tablet.DR PO SCH (09:03)
[2019-01-20] MEDS: diltiazem-D5W 125mg/125ml 125 ML IV SCH (09:11)
--- NOTE | 2019-01-20 11:24 | NUR ---
Heart rate improving after Cardizem gtt started, pt now 110-120's. States his nausea has subsided.
[2019-01-20 11:48] LABS: ALBUMIN 3.5 G/DL (3.4-5.0); ANION GAP 11 (8-16); CALCIUM 8.3 MG/DL (8.5-10.1); CHLORIDE 90 MMOL/L (99-107); GLUCOSE 105 MG/DL (70-104); SODIUM 121 MMOL/L (135-145); TOTAL CARBON DIOXIDE 19.7 MMOL/L (24-32)
[2019-01-20 11:55] LABS: BLOOD UREA NITROGEN 4 MG/DL (7-18)
[2019-01-20 12:02] LABS: BUN/CREATININE RATIO 3.3 (5.4-32.0); CREATININE 1.23 MG/DL (0.60-1.10); eGFR 59 ML/MIN
--- NOTE | 2019-01-20 18:20 | NUR ---
Patient in room PCU 3018. I have received report from Yuko PRIETO and had the opportunity to ask questions and assume patient care.
[2019-01-20] MEDS: heparin, porcine 5000 units/ml vial SQ SCH (19:32)
[2019-01-21] VITALS (8 sets, daily range): BP systolic 116–135; BP diastolic 60–102
[2019-01-21] MEDS: normal saline 1000ml 1,000 ML IV SCH ×3 (00:16→20:50)
[2019-01-21 05:35] LABS: BASOPHILS % (AUTO) 0.6 % (0-1); EOSINOPHILS # (AUTO) 0.1 X10'3 (0-0.9); EOSINOPHILS % (AUTO) 1.3 % (0-6); HEMATOCRIT 32.4 % (42.0-52.0); HEMOGLOBIN 11.1 g/dl (14.0-17.9); LYMPHOCYTES # (AUTO) 0.5 X10'3 (1.1-4.8); LYMPHOCYTES % (AUTO) 12.7 % (21-51); MEAN CORPUSCULAR HEMOGLOBIN 36.8 PG (27.0-31.0); MEAN CORPUSCULAR HGB CONC 34.1 g/dL (33.0-36.5); MEAN CORPUSCULAR VOLUME 107.8 FL (78-98); MEAN PLATELET VOLUME 9.1 FL (7.4-10.4); MONOCYTES # (AUTO) 0.5 X10'3 (0-0.9); MONOCYTES % (AUTO) 12.8 % (2-12); NEUTROPHILS # (AUTO) 3.1 X10'3 (1.8-7.7); NEUTROPHILS % (AUTO) 72.6 % (42-75); PLATELET COUNT 74 X10'3 (140-440); RED BLOOD COUNT 3.01 X10'6 (4.70-6.10); WHITE BLOOD COUNT 4.2 X10'3 (4.5-11.0)
[2019-01-21 05:38] LABS: ALBUMIN 3.3 G/DL (3.4-5.0); ANION GAP 8 (8-16); BLOOD UREA NITROGEN 6 MG/DL (7-18); BUN/CREATININE RATIO 4.6 (5.4-32.0); CALCIUM 8.4 MG/DL (8.5-10.1); CHLORIDE 94 MMOL/L (99-107); CREATININE 1.31 MG/DL (0.60-1.10); GLUCOSE 87 MG/DL (70-104); POTASSIUM 4.3 MMOL/L (3.5-5.1); SODIUM 126 MMOL/L (135-145); TOTAL CARBON DIOXIDE 23.8 MMOL/L (24-32); eGFR 55 ML/MIN
[2019-01-21] MEDS: thiamine 100mg tablet PO SCH (07:46)
[2019-01-21] MEDS: aspirin 325mg tablet, delayed-release (Ecotrin) PO SCH (07:47)
[2019-01-21] MEDS: cyanocobalamin 500mcg tablet PO SCH (07:47)
[2019-01-21] MEDS: folic acid 1mg tablet PO SCH (07:48)
[2019-01-21] MEDS: pantoprazole 40mg Tablet.DR PO SCH (07:48)
[2019-01-21] MEDS: metoprolol tartrate 50mg tablet PO SCH ×2 (07:49→21:05)
[2019-01-21] MEDS: multivitamins, therapeutics tablet PO SCH (07:49)
[2019-01-21] MEDS: lisinopril 5mg tablet PO SCH (07:49)
[2019-01-21] MEDS: nicotine 14mg patch - 24hr TD SCH (07:50)
[2019-01-21] MEDS: heparin, porcine 5000 units/ml vial SQ SCH ×2 (07:51→20:00)
[2019-01-21] MEDS: diltiazem-D5W 125mg/125ml 125 ML IV SCH (09:26)
--- NOTE | 2019-01-21 14:35 | NUR ---
Paged Dr. Johns. promotional table spacer PAGER ID: [phone] MESSAGE: Louis PRIETO [phone] [id number]: Vasyl Stallworth: 74, down from 102 on 01/20. Pt requesting Neurontin. Pt claims he takes 100 mg PO TID at home. Thank you.
[2019-01-21] MEDS: LORazepam 1 MG tablet PO PRN (16:45)
--- NOTE | 2019-01-21 18:56 | NUR ---
Problems reprioritized. Patient report given, questions answered & plan of care reviewed with Yadira PRIETO.
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
--- NOTE | 2019-01-21 19:47 | NUR ---
PAGER ID: [phone] MESSAGE: CELESTINA Stallworth PLT is 74 from 102 yesterday. Heparin SQ held on day shift. Would you like me to hold or administer? Yadira Morales Addendum: 01/21/19 at 1949 by Yadira Garvey RN Dr. Carnes would like me to hold heparin for tonight. Follow day hospitalist team's advice.
[2019-01-22 03:00] VITALS: BP 102/64
[2019-01-22 05:48] LABS: ANION GAP 8 (8-16); BLOOD UREA NITROGEN 9 MG/DL (7-18); BUN/CREATININE RATIO 7.4 (5.4-32.0); CALCIUM 8.1 MG/DL (8.5-10.1); CHLORIDE 95 MMOL/L (99-107); CREATININE 1.22 MG/DL (0.60-1.10); GLUCOSE 69 MG/DL (70-104); SODIUM 126 MMOL/L (135-145); TOTAL CARBON DIOXIDE 23.5 MMOL/L (24-32); eGFR 60 ML/MIN
[2019-01-22 06:01] LABS: BASOPHILS % (AUTO) 0.7 % (0-1); EOSINOPHILS # (AUTO) 0.1 X10'3 (0-0.9); EOSINOPHILS % (AUTO) 2.8 % (0-6); HEMATOCRIT 31.4 % (42.0-52.0); HEMOGLOBIN 10.8 g/dl (14.0-17.9); LYMPHOCYTES # (AUTO) 0.7 X10'3 (1.1-4.8); LYMPHOCYTES % (AUTO) 17.2 % (21-51); MEAN CORPUSCULAR HEMOGLOBIN 37.2 PG (27.0-31.0); MEAN CORPUSCULAR HGB CONC 34.4 g/dL (33.0-36.5); MEAN CORPUSCULAR VOLUME 108.3 FL (78-98); MEAN PLATELET VOLUME 9.6 FL (7.4-10.4); MONOCYTES # (AUTO) 0.5 X10'3 (0-0.9); MONOCYTES % (AUTO) 12.1 % (2-12); NEUTROPHILS # (AUTO) 2.6 X10'3 (1.8-7.7); NEUTROPHILS % (AUTO) 67.2 % (42-75); PLATELET COUNT 60 X10'3 (140-440); RED CELL DISTRIBUTION WIDTH 15.9 % (11.5-14.5); WHITE BLOOD COUNT 3.8 X10'3 (4.5-11.0)
--- NOTE | 2019-01-22 06:30 | NUR ---
Problems reprioritized. Patient report given, questions answered & plan of care reviewed with Nemo PRIETO.
[2019-01-22] MEDS: normal saline 1000ml 1,000 ML IV SCH ×3 (06:50→21:30)
[2019-01-22 07:00] VITALS: BP 127/82
[2019-01-22] MEDS: nicotine 14mg patch - 24hr TD SCH (07:49)
[2019-01-22] MEDS: pantoprazole 40mg Tablet.DR PO SCH (07:49)
[2019-01-22] MEDS: multivitamins, therapeutics tablet PO SCH (07:50)
[2019-01-22] MEDS: thiamine 100mg tablet PO SCH (07:50)
[2019-01-22] MEDS: cyanocobalamin 500mcg tablet PO SCH (07:52)
[2019-01-22] MEDS: lisinopril 5mg tablet PO SCH (07:53)
[2019-01-22] MEDS: aspirin 325mg tablet, delayed-release (Ecotrin) PO SCH (07:53)
[2019-01-22] MEDS: metoprolol tartrate 50mg tablet PO SCH ×2 (07:53→21:28)
[2019-01-22] MEDS: folic acid 1mg tablet PO SCH (07:54)
[2019-01-22] MEDS: heparin, porcine 5000 units/ml vial SQ SCH (08:00)
[2019-01-22 11:00] VITALS: BP 114/78
[2019-01-22] MEDS: LORazepam 1 MG tablet PO PRN ×3 (11:21→21:27)
[2019-01-22 15:00] VITALS: BP 137/79
--- NOTE | 2019-01-22 17:56 | NUR ---
PAGER ID: [phone] MESSAGE: Room 3018O Jose Alejandro Stallworth. family requesting DC of Ativan, stating increases patient confusion, requesting gabapentin in place,[place] [phone]
[2019-01-22 18:00] VITALS: BP 112/62
--- NOTE | 2019-01-22 18:13 | NUR ---
Problems reprioritized. Patient report given, questions answered & plan of care reviewed with Yadira Khan RN, pt greeted at bedside.
--- NOTE | 2019-01-22 18:35 | NUR ---
Patient in room PCU 3018. I have received report from NIGEL and had the opportunity to ask questions and assume patient care.
--- NOTE | 2019-01-22 18:37 | NUR ---
Patient in room PCU 3018. I have received report from Nemo Fleming RN and had the opportunity to ask questions and assume patient care. Pt currently lying in bed. More alert and oriented today. Is receptive to care. Per report, day hospitalist will not start gabepentin as it shows on his med rec that the pt is no longer taking. Family insists that the pt does very well when he is on this, and does not do well when he is placed on ativan. Ativan has been DCd until clarification can be made regarding pt's gabapentin. [facility] and/or contact the family regarding prescription.
--- NOTE | 2019-01-22 20:29 | NUR ---
PAGER ID: [phone] MESSAGE: Jose Alejandro Goyal in [id number] is requesting Ativan he is feeling anxious. He was placed on ETOH protocol originally. Ativan DCd today per family request, saying it makes him more confused. What do you advise? Yadira [facility] [id number]
[2019-01-22 22:00] VITALS: BP 135/98
[2019-01-23 02:00] VITALS: BP 130/79
[2019-01-23 06:07] LABS: ALBUMIN 2.9 G/DL (3.4-5.0); ANION GAP 8 (8-16); BASOPHILS % (AUTO) 0.5 % (0-1); BLOOD UREA NITROGEN 12 MG/DL (7-18); BUN/CREATININE RATIO 9.8 (5.4-32.0); CALCIUM 8.4 MG/DL (8.5-10.1); CHLORIDE 101 MMOL/L (99-107); CREATININE 1.22 MG/DL (0.60-1.10); EOSINOPHILS # (AUTO) 0.1 X10'3 (0-0.9); EOSINOPHILS % (AUTO) 2.7 % (0-6); GLUCOSE 88 MG/DL (70-104); LYMPHOCYTES # (AUTO) 0.7 X10'3 (1.1-4.8); LYMPHOCYTES % (AUTO) 16.8 % (21-51); MEAN CORPUSCULAR HEMOGLOBIN 37.1 PG (27.0-31.0); MEAN CORPUSCULAR HGB CONC 34.4 g/dL (33.0-36.5); MEAN PLATELET VOLUME 9.6 FL (7.4-10.4); MONOCYTES # (AUTO) 0.5 X10'3 (0-0.9); MONOCYTES % (AUTO) 12.5 % (2-12); NEUTROPHILS # (AUTO) 2.7 X10'3 (1.8-7.7); NEUTROPHILS % (AUTO) 67.5 % (42-75); PLATELET COUNT 65 X10'3 (140-440); POTASSIUM 4.2 MMOL/L (3.5-5.1); RED BLOOD COUNT 2.96 X10'6 (4.70-6.10); RED CELL DISTRIBUTION WIDTH 16.1 % (11.5-14.5); SODIUM 131 MMOL/L (135-145); TOTAL CARBON DIOXIDE 22.3 MMOL/L (24-32); eGFR 60 ML/MIN
--- NOTE | 2019-01-23 06:31 | NUR ---
Problems reprioritized. Patient report given, questions answered & plan of care reviewed with
--- NOTE | 2019-01-23 06:33 | NUR ---
Problems reprioritized. Patient report given, questions answered & plan of care reviewed with JIM PRIETO. KIRBY HE documentation: I have reviewed and agree with all interventions, assessments performed and documented by JOHANNY HE Medication Administration: For this medication-pass time frame, all medication were reviewed, dispensed, administered and documented per hospital policy by JOHANNY PRIETO.
[2019-01-23] MEDS: cyanocobalamin 500mcg tablet PO SCH (07:49)
[2019-01-23] MEDS: multivitamins, therapeutics tablet PO SCH (07:49)
[2019-01-23] MEDS: pantoprazole 40mg Tablet.DR PO SCH (07:49)
[2019-01-23] MEDS: thiamine 100mg tablet PO SCH (07:50)
[2019-01-23] MEDS: folic acid 1mg tablet PO SCH (07:50)
[2019-01-23] MEDS: metoprolol tartrate 50mg tablet PO SCH (07:50)
[2019-01-23] MEDS: nicotine 14mg patch - 24hr TD SCH (07:50)
[2019-01-23] MEDS: aspirin 325mg tablet, delayed-release (Ecotrin) PO SCH (07:51)
[2019-01-23] MEDS: lisinopril 5mg tablet PO SCH (07:51)
[2019-01-23] MEDS: LORazepam 1 MG tablet PO PRN (07:53)
[2019-01-23] MEDS ORDERED: diltiazem CD 120mg capsule (once-daily) PO SCH (09:55)
[2019-01-23 10:13] LABS: PLATELET ESTIMATE DECREASED
[2019-01-23 10:14] LABS: ANISOCYTOSIS 1+; POLYCHROMASIA 1+
[2019-01-23] MEDS: normal saline 1000ml 1,000 ML IV SCH (11:44)
[2019-01-23] MEDS ORDERED: CARCD120C PO (12:06)
[2019-01-23 12:49] VITALS: BP 121/72
== END 2019-01-23 14:52 | disposition home or self-care (01) | DRG 241 ==
LOC: ER 02:07 → ED HOLD 03:45 → PCU 3S 07:15
PROVIDERS: ADMIT Hospitalist; ATTEND Internal Medicine
DX: K29.20 Alcoholic gastritis without bleeding (principal); N17.9 Acute kidney failure, unspecified; D69.59 Other secondary thrombocytopenia; I42.9 Cardiomyopathy, unspecified; E87.1 Hypo-osmolality and hyponatremia; I48.91 Unspecified atrial fibrillation; E86.1 Hypovolemia; F10.20 Alcohol dependence, uncomplicated; F17.200 Nicotine dependence, unspecified, uncomplicated; I25.10 Atherosclerotic heart disease of native coronary artery without angina pectoris; I50.9 Heart failure, unspecified; K74.60 Unspecified cirrhosis of liver; B19.20 Unspecified viral hepatitis C without hepatic coma; F12.90 Cannabis use, unspecified, uncomplicated; Z79.899 Other long term (current) drug therapy; Z71.41 Alcohol abuse counseling and surveillance of alcoholic; Z95.1 Presence of aortocoronary bypass graft; Z71.6 Tobacco abuse counseling
CPT/HCPCS: 36415; 71045; 80048; 80053; 80320; 83690; 83880; 85025; 85610; 87070; 93005; 96361; 96374; 96375; 99285; G0378; J0780; J1644; J2060; J2405; J3490; J7030

== ENCOUNTER 2019-02-24 08:13 | Emergency (ER) | payer MEDICAID, OTHER ==
[~2019-02-24] VITALS: Ht 182.9 cm; Wt 83.0 kg
[~2019-02-24 08:13] MED LIST changes: -ASPI-611 PO; +ASPI-845 PO; +CARCD120C PO; -CARV-50 PO; +CHOL400T32 PO; +CYA500T PO; -FOLI1TAB16 PO; -FURO-150 PO; -GABA100C PO; -LACT-28 PO; +METO-467 PO; -NICO-631 TD; -POTA10TA36 PO; -SPIR1TAB4 PO; -SUCR1TAB34 PO; -THI100T PO; +TRAM50TA2 PO
[2019-02-24] MEDS ORDERED: ondansetron/PF 4mg/2ml inj IV ONE (08:30)
[2019-02-24] MEDS ORDERED: normal saline 1000ML IV soln IVB ONE (08:30)
[2019-02-24] MEDS ORDERED: traMADol 50MG tablet PO ONE (09:05)
[2019-02-24 09:08] LABS: BASOPHILS % (AUTO) 1.1 % (0-1); EOSINOPHILS # (AUTO) 0.1 X10'3 (0-0.9); EOSINOPHILS % (AUTO) 1.3 % (0-6); HEMATOCRIT 36.9 % (42.0-52.0); HEMOGLOBIN 12.6 g/dl (14.0-17.9); LYMPHOCYTES # (AUTO) 1.3 X10'3 (1.1-4.8); LYMPHOCYTES % (AUTO) 27.6 % (21-51); MEAN CORPUSCULAR HEMOGLOBIN 36.3 PG (27.0-31.0); MEAN CORPUSCULAR HGB CONC 34.1 g/dL (33.0-36.5); MEAN CORPUSCULAR VOLUME 106.5 FL (78-98); MEAN PLATELET VOLUME 8.7 FL (7.4-10.4); MONOCYTES # (AUTO) 0.5 X10'3 (0-0.9); MONOCYTES % (AUTO) 11.9 % (2-12); NEUTROPHILS # (AUTO) 2.7 X10'3 (1.8-7.7); NEUTROPHILS % (AUTO) 58.1 % (42-75); PLATELET COUNT 120 X10'3 (140-440); RED BLOOD COUNT 3.46 X10'6 (4.70-6.10); RED CELL DISTRIBUTION WIDTH 16.6 % (11.5-14.5); WHITE BLOOD COUNT 4.6 X10'3 (4.5-11.0)
[2019-02-24 09:27] LABS: ALANINE AMINOTRANSFERASE 35 U/L (12-78); ALBUMIN 3.6 G/DL (3.4-5.0); ALKALINE PHOSPHATASE 175 IU/L (46-116); ANION GAP 11 (8-16); ASPARTATE AMINO TRANSFERASE 80 U/L (10-37); BILIRUBIN,TOTAL 1.4 MG/DL (0.1-1.0); BLOOD UREA NITROGEN 6 MG/DL (7-18); BUN/CREATININE RATIO 5.4 (5.4-32.0); CALCIUM 8.3 MG/DL (8.5-10.1); CHLORIDE 91 MMOL/L (99-107); CREATININE 1.11 MG/DL (0.60-1.10); GLUCOSE 90 MG/DL (70-104); LIPASE 131 U/L (73-393); POTASSIUM 4.1 MMOL/L (3.5-5.1); SODIUM 126 MMOL/L (135-145); TOTAL CARBON DIOXIDE 23.8 MMOL/L (24-32); TOTAL PROTEIN 7.3 G/DL (6.4-8.2); eGFR 67 ML/MIN
[2019-02-24] MEDS ORDERED: morphine 2 MG/ML inj. syringe IV ONE (10:10)
--- NOTE | 2019-02-24 10:24 | NUR ---
Phone call to son Jose Alejandro at this time [phone]. Son to come product picker patient in lobby.
[2019-02-24 10:39] VITALS: BP 138/92
== END 2019-02-24 10:43 | disposition home or self-care (01) ==
LOC: ER 08:13
DX: R11.2 Nausea with vomiting, unspecified (principal); R19.7 Diarrhea, unspecified; M79.89 Other specified soft tissue disorders; E87.1 Hypo-osmolality and hyponatremia; M79.2 Neuralgia and neuritis, unspecified; F10.10 Alcohol abuse, uncomplicated; I48.91 Unspecified atrial fibrillation; I50.9 Heart failure, unspecified; F12.90 Cannabis use, unspecified, uncomplicated; F11.90 Opioid use, unspecified, uncomplicated; Z87.19 Personal history of other diseases of the digestive system; Z86.19 Personal history of other infectious and parasitic diseases; Z98.890 Other specified postprocedural states; Z79.899 Other long term (current) drug therapy; Z79.82 Long term (current) use of aspirin; Y90.9 Presence of alcohol in blood, level not specified
CPT/HCPCS: 36415; 80053; 83690; 85025; 96374; 96375; 99283; J2270; J2405; J7030

== ENCOUNTER 2019-03-03 15:57 | Emergency (ER) | payer MEDICAID, OTHER ==
[~2019-03-03] VITALS: Ht 182.9 cm; Wt 70.9 kg
--- NOTE | 2019-03-03 16:13 | NUR ---
Pt not taking his prescribed cardizem. Last took his metoprolol yesterday at 1200.
[2019-03-03] MEDS ORDERED: gabapentin 400mg capsule PO SCH (16:15)
[2019-03-03] MEDS ORDERED: metoprolol tartrate 50mg tablet PO ONE (16:15)
[2019-03-03] MEDS ORDERED: gabapentin 400mg capsule PO ONE (16:15)
[2019-03-03 16:45] LABS: EOSINOPHILS # (AUTO) 0.2 X10'3 (0-0.9); EOSINOPHILS % (AUTO) 4.4 % (0-6); HEMATOCRIT 32.9 % (42.0-52.0); HEMOGLOBIN 11.1 g/dl (14.0-17.9); LYMPHOCYTES # (AUTO) 0.9 X10'3 (1.1-4.8); LYMPHOCYTES % (AUTO) 24.7 % (21-51); MEAN CORPUSCULAR HEMOGLOBIN 36.5 PG (27.0-31.0); MEAN CORPUSCULAR HGB CONC 33.8 g/dL (33.0-36.5); MEAN PLATELET VOLUME 8.3 FL (7.4-10.4); MONOCYTES # (AUTO) 0.3 X10'3 (0-0.9); MONOCYTES % (AUTO) 9.2 % (2-12); NEUTROPHILS # (AUTO) 2.3 X10'3 (1.8-7.7); NEUTROPHILS % (AUTO) 60.7 % (42-75); PLATELET COUNT 113 X10'3 (140-440); RED BLOOD COUNT 3.04 X10'6 (4.70-6.10); RED CELL DISTRIBUTION WIDTH 17.7 % (11.5-14.5); WHITE BLOOD COUNT 3.7 X10'3 (4.5-11.0)
[2019-03-03 16:58] LABS: ALANINE AMINOTRANSFERASE 28 U/L (12-78); ALBUMIN 3.3 G/DL (3.4-5.0); ALKALINE PHOSPHATASE 184 IU/L (46-116); ANION GAP 9 (8-16); ASPARTATE AMINO TRANSFERASE 89 U/L (10-37); BLOOD UREA NITROGEN 4 MG/DL (7-18); CALCIUM 8.3 MG/DL (8.5-10.1); CHLORIDE 99 MMOL/L (99-107); GLUCOSE 89 MG/DL (70-104); POTASSIUM 4.7 MMOL/L (3.5-5.1); SODIUM 132 MMOL/L (135-145); TOTAL CARBON DIOXIDE 24.3 MMOL/L (24-32); TOTAL PROTEIN 6.6 G/DL (6.4-8.2)
[2019-03-03 17:05] LABS: BUN/CREATININE RATIO 3.3 (5.4-32.0); CREATININE 1.21 MG/DL (0.60-1.10); MAGNESIUM 1.9 MG/DL (1.5-2.4); eGFR 61 ML/MIN
[2019-03-03 17:13] VITALS: BP 124/73
--- NOTE | 2019-03-03 17:20 | NUR ---
Labs and imaging results discussed with pt, when told he was safe for discharge the pt became agitated. Pt requested to contact son for ride.
--- NOTE | 2019-03-03 17:25 | NUR ---
Entered pt room to give him a phone. Found pt attempting to climb out of [facility]. When asked what he was doing, he stated "I'm getting the hell out of here". I then asked pt if he needed the phone to contact his son. Pt stated that he did and got back onto [facility]. Educated pt on use of phone.
== END 2019-03-03 17:50 | disposition home or self-care (01) ==
LOC: ER 15:57
DX: R06.02 Shortness of breath (principal); F41.9 Anxiety disorder, unspecified; I48.91 Unspecified atrial fibrillation; R22.43 Localized swelling, mass and lump, lower limb, bilateral; I50.9 Heart failure, unspecified; F12.90 Cannabis use, unspecified, uncomplicated; F11.90 Opioid use, unspecified, uncomplicated; Z86.19 Personal history of other infectious and parasitic diseases; Z98.890 Other specified postprocedural states
CPT/HCPCS: 36415; 71045; 80053; 83735; 83880; 85025; 93005; 99284